=== PATIENT | male | born 1960 | race Caucasian/White ===

== ENCOUNTER 2020-09-07 15:51 | Emergency (ER) | payer MEDICARE, SELFPAY ==
[2020-09-07 15:53] VITALS: BP 147/101; PULSE 87; RESP 18; TEMP 36.7; O2SAT 98; BMI 25.7
[2020-09-07 16:00] VITALS: BP 156/99; PULSE 99; O2SAT 95
--- NOTE | 2020-09-07 16:02 | PC.NURSE ---
DR. JACQUES VERBALLY ORDRED A MEDINA FOR PATIENT
[2020-09-07 16:21] VITALS: BP 160/114; PULSE 92; O2SAT 95
--- NOTE | 2020-09-07 16:26 | HMH.EDGENADL ---
ED Disposition Clinical Impression: Acute urinary retention Disposition: Home, Self-Care Condition on Discharge: Good Additional Instructions: Please followup with urology and your PCP to get burks removed. Referrals: Nathalia Landeros [Primary Care Provider] - Stefan Paula MD [Staff Physician] - - Critical Care Critical Care Time: No Attestation: On 09/07/20, the high probability of a clinically significant, sudden or life threatening deterioration of the following system(s) required my full and direct attention, intervention and personal management. The time I documented below is in addition to time spent performing reported procedures but includes the following listed in this critical care notation. Medical Decision Making - Medical Records Medical records reviewed: Yes: I reviewed the patient's medical records. - Kurtis Inquiry Pt receiving controlled substance: No Vital Signs: 09/07/20 15:53 09/07/20 16:00 09/07/20 16:21 Temperature 98.1 F Temperature Source Oral Pulse Rate 99 H 92 H Pulse Rate [Right] 87 Respiratory Rate 18 Blood Pressure 156/99 H 160/114 H Blood Pressure [Right Arm] 147/101 H Blood Pressure Mean 122 129 Blood Pressure Mean [Right Arm] 116 02 Sat by Pulse Oximetry 98 95 95 09/07/20 16:30 09/07/20 17:00 Temperature Temperature Source Pulse Rate 95 H 94 H Pulse Rate [Right] Respiratory Rate Blood Pressure 150/102 H 156/96 H Blood Pressure [Right Arm] Blood Pressure Mean 123 117 Blood Pressure Mean [Right Arm] 02 Sat by Pulse Oximetry 95 95 - Lab Data Lab Results 09/07/20 16:11: Urine Color Yellow, Urine Appearance Clear, Urine pH 5.0, Ur Specific [place] 1.020, Urine Protein Negative, Urine Glucose (UA) Negative, Urine Ketones 1+, Urine Blood Negative, Urine Nitrate Negative, Urine Bilirubin Negative, Urine Urobilinogen 0.2, Ur Leukocyte Esterase Negative, Urine RBC None, Urine WBC None, Ur Squamous Epith Cells None, Urine Bacteria None 09/07/20 17:20: WBC 13.0 H, RBC 5.06, Hgb 15.2, Hct 46.4, MCV 91.6, MCH 30.0, MCHC 32.7, RDW 14.2, Plt Count 406, MPV 8.1, Neut % (Auto) 76.1, Lymph % (Auto) 17.6, [place] % (Auto) 4.2, Eos % (Auto) 1.4, Baso % (Auto) 0.7, Neut # (Auto) 9.9 H, Lymph # (Auto) 2.3, [place] # (Auto) 0.5, Eos # (Auto) 0.2, Baso # (Auto) 0.1 09/07/20 17:20: Sodium 138, Potassium 4.2, Chloride 107, Carbon Dioxide 21 L, Anion Gap 14.2, BUN 25 H, Creatinine 0.90, Estimated Creat Clear 97, Estimated GFR 86, Est GFR ( Amer) 104, Glucose 148 H, Calcium 9.5, Total Bilirubin 0.4, AST 35, ALT 27, Alkaline Phosphatase 84, Total Protein 7.7, Albumin 4.7, Globulin 3.0, Albumin/Globulin Ratio 1.6 Result diagrams: 09/07/20 17:20 09/07/20 17:20 Medical Decision Narrative: Upon presentation, patient is hemodynamically stable and nontoxic, but uncomfortable appearing. Patient presents with acute urinary retention. Differential diagnosis includes but is not limited to BPH, cauda equina, obstructive nephrolithiasis. A Burks was placed immediately upon arrival with 1200 mL of clear yellow output. Patient had immediate relief. Labs including CBC and CMP were obtained to evaluate patient's renal function. Patient has a normal creatinine. Patient has a mildly elevated white blood cell count and elevated BUN, likely in setting of acute urinary retention. Patient's urine do not demonstrate any signs of a UTI. Patient was discharged in stable condition and will follow up with urology and his PCP as he will be discharged with a Burks bag. General Adult HPI - General Chief complaint: PAIN Stated complaint: hasn't urinated in 12 hours Time Seen by Provider: 09/07/20 15:55 Mode of Arrival: Family Vehicle Limitations: No Limitations Description of Symptoms (Recalled from ER Triage Doc. by RN): PATIENT C/O LOWER ABDOMINAL PAIN SINCE YESTERDAY. PT REPORTS HE HAS NOT URINATED IN 15-17 HOURS. PATIENT REPORTS HE HAS A HX OF BPH. - History of Pres
[2020-09-07 16:30] VITALS: BP 150/102; PULSE 95; O2SAT 95
[2020-09-07 17:00] VITALS: BP 156/96; PULSE 94; O2SAT 95
[2020-09-07 17:03] LABS: Microscopic, Urine URINE MICROSCOPIC (MICROSCOPIC)
[2020-09-07 17:09] LABS: Appearance,Urine CLEAR (Clear); Bilirubin,Urine Negative (Negative); Blood, Urine Negative (Negative); Color,Urine YELLOW (Yellow); Glucose,Urine (UA) Negative (Negative); Ketones,Urine 1+ (Negative); Leukocyte Esterase,Urine Negative (Negative); Nitrate,Urine Negative (Negative); Protein,Urine Negative (Negative); Urobilinogen,Urine 0.2 EU/dl (0.2)
[2020-09-07 17:19] LABS: Basophils # 0.1 K/mm3 (0-0.2); Basophils % 0.7 % (0.1-2.0); Eosinophils # 0.2 K/mm3 (0.0-0.4); Eosinophils % 1.4 % (0.1-12.0); Hematocrit 46.4 % (42.0-52.0); Hemoglobin 15.2 g/dL (14.1-18.0); Lymphocytes # 2.3 K/mm3 (0.7-4.5); Lymphocytes % 17.6 % (10-50); Mean Corpuscular HGB Conc 32.7 g/dL (31.8-35.4); Mean Corpuscular Volume 91.6 fl (80-94); Mean Platelet Volume 8.1 fl (7.4-10.4); Monocytes # 0.5 K/mm3 (0.1-1.0); Monocytes % 4.2 % (1.7-9.3); Neutrophils # 9.9 K/mm3 (1.8-7.8); Neutrophils % 76.1 % (37.0-80.0); Platelet Count 406 K/mm3 (142-424); Red Blood Count 5.06 M/mm3 (4.60-6.20); Red Cell Distribution Width 14.2 % (11.5-17.5)
[2020-09-07 17:22] LABS: Chloride 107 mmol/L (98-107); Potassium 4.2 mmoL/L (3.5-5.1); Sodium 138 mmol/L (136-145)
[2020-09-07 17:24] LABS: Blood Urea Nitrogen 25 mg/dl (9-20); Creatinine Clearance Estimated 97 mL/min (50-200); Estimated Glomerular Filt Rate 86 ml/min (>60); GFR (African American) 104 ML/MIN (>60)
[2020-09-07 17:25] LABS: Alanine Aminotransferase 27 U/L (12-78); Albumin Level 4.7 g/dl (3.5-5.0); Albumin/Globulin Ratio 1.6 (1.1-1.8); Alkaline Phosphatase 84 U/L (38-126); Anion Gap 14.2 mEq/L (5-15); Aspartate Amino Transferase 35 U/L (17-59); Bilirubin,Total 0.4 mg/dl (0.2-1.3); Calcium 9.5 mg/dl (8.4-10.2); Carbon Dioxide 21 mmol/L (22.0-30.0); Glucose 148 mg/dl (74-100); Total Protein,Serum 7.7 g/dl (6.3-8.2)
[2020-09-07 17:52] VITALS: BP 148/90; PULSE 94; RESP 20; TEMP 36.7; O2SAT 98
== END 2020-09-07 17:50 | disposition home or self-care (01) ==
PROVIDERS: Emergency Provider Emergency Medicine; PCP Family Medicine
DX: N40.1 Benign prostatic hyperplasia with lower urinary tract symptoms (principal); R33.8 Other retention of urine; J44.9 Chronic obstructive pulmonary disease, unspecified; I10 Essential (primary) hypertension; F17.210 Nicotine dependence, cigarettes, uncomplicated; Z88.0 Allergy status to penicillin; Z88.8 Allergy status to other drugs, medicaments and biological substances
CPT/HCPCS: 80053; 81001; 85025; 99282

== ENCOUNTER 2022-05-03 04:44 | Inpatient (IN) | payer MEDICARE, SELFPAY ==
[2022-05-03] VITALS (30 sets, daily range): BP systolic 109–164; BP diastolic 67–112; PULSE 74–117; RESP 14–26; TEMP 36.1–43; O2SAT 90–98; BMI 27.6; BMI 27.9
--- NOTE | 2022-05-03 05:37 | CT_ITS ---
PROCEDURE INFORMATION: Exam: CT Abdomen And Pelvis With Contrast Exam date and time: 05/03/2022 7:07 AM Age: 61 years old Clinical indication: Abdominal pain; Localized; Left lower quadrant (llq); Prior surgery; Surgery date: 6+ months; Surgery type: Gb spleen; Additional info: Llq abd pain, nausea TECHNIQUE: Imaging protocol: Computed tomography of the abdomen and pelvis with contrast. Radiation optimization: All CT scans at this facility use at least one of these dose optimization techniques: automated exposure control; mA and/or kV adjustment per patient size (includes targeted exams where dose is matched to clinical indication); or iterative reconstruction. Contrast material: ISOVUE; Contrast volume: 75 ml; Contrast route: IV; COMPARISON: No relevant prior studies available. FINDINGS: Liver: 1.1 cm cyst within the inferior aspect of the right lobe of the liver. The liver is otherwise unremarkable. Gallbladder and bile ducts: There are postsurgical changes from a cholecystectomy. Pancreas: Normal. No ductal dilation. 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 Adrenal glands: Normal. No mass. Kidneys and ureters: Normal. No hydronephrosis. Stomach and bowel: Multiple dilated fluid-filled loops of small bowel that measure up to 3.8 cm in size. There is a ventral hernia repair. There is a loop of bowel that extends posterior to the left sided ventral hernia repair. There is a transition from dilated bowel to the relatively decompressed bowel at this location. No signs of inflammation. Diffuse diverticulosis. Appendix: No evidence of appendicitis. Intraperitoneal space: Unremarkable. No free air. No significant fluid collection. Vasculature: Unremarkable. No abdominal aortic aneurysm. Lymph nodes: Unremarkable. No enlarged lymph nodes. Urinary bladder: Unremarkable as visualized. Reproductive: Unremarkable as visualized. Bones/joints: Unremarkable. No acute fracture. Soft tissues: Postsurgical changes from a previous ventral hernia repair. There is no evidence of recurrence or failure. IMPRESSION: 1. Postsurgical changes from previous ventral hernia repair with failure of the left sided mesh. There is a loop of bowel between the mesh in the anterior abdominal wall with a significant change in caliber, workforce services representative of a partial versus high-grade bowel obstruction. There is no perforation. 2. Diverticulosis. 3. The remainder of the examination is unremarkable.
[2022-05-03 05:45] LABS: Appearance,Urine CLEAR (Clear); Bilirubin,Urine Negative (Negative); Blood, Urine Negative (Negative); Color,Urine YELLOW (Yellow); Glucose,Urine (UA) Negative (Negative); Ketones,Urine TRACE (Negative); Leukocyte Esterase,Urine Negative (Negative); Microscopic, Urine URINE MICROSCOPIC (MICROSCOPIC); Nitrate,Urine Negative (Negative); Protein,Urine Negative (Negative)
[2022-05-03 05:45] LABS: Basophils # 0.1 K/mm3 (0-0.2); Basophils % 0.6 % (0.1-2.0); Eosinophils # 0.1 K/mm3 (0.0-0.4); Eosinophils % 0.7 % (0.1-12.0); Hemoglobin 16.7 g/dL (14.1-18.0); Lymphocytes # 1.4 K/mm3 (0.7-4.5); Lymphocytes % 7.4 % (10-50); Mean Corpuscular HGB Conc 32.1 g/dL (31.8-35.4); Mean Corpuscular Hemoglobin 29.5 pg (27.0-31.2); Mean Corpuscular Volume 92.1 fl (80-94); Mean Platelet Volume 8.5 fl (7.4-10.4); Monocytes # 0.5 K/mm3 (0.1-1.0); Monocytes % 2.7 % (1.7-9.3); Neutrophils % 88.6 % (37.0-80.0); Platelet Count 434 K/mm3 (142-424); Red Blood Count 5.65 M/mm3 (4.60-6.20); Red Cell Distribution Width 14.8 % (11.5-17.5); White Blood Count 19.2 K/mm3 (4.8-10.8)
[2022-05-03 05:48] LABS: Chloride 99 mmol/L (98-107); Sodium 140 mmol/L (136-145)
[2022-05-03 05:49] LABS: MANUAL DIFFERENTIAL MANUAL DIFFERENTIAL (MANUAL DIFF)
[2022-05-03 05:51] LABS: Alanine Aminotransferase 22 U/L (12-78); Albumin Level 4.7 g/dl (3.5-5.0); Albumin/Globulin Ratio 1.3 (1.1-1.8); Alkaline Phosphatase 87 U/L (38-126); Aspartate Amino Transferase 33 U/L (17-59); Bilirubin,Total 0.5 mg/dl (0.2-1.3); Blood Urea Nitrogen 15 mg/dl (9-20); Carbon Dioxide 32 mmol/L (22.0-30.0); Creatinine Clearance Estimated 92 mL/min (50-200); Estimated Glomerular Filt Rate 86 ml/min (>60); GFR (African American) 103 ML/MIN (>60); Globulin 3.6 g/dL (1.3-3.2); Total Protein,Serum 8.3 g/dl (6.3-8.2)
[2022-05-03 05:52] LABS: Calcium 10.4 mg/dl (8.4-10.2); Glucose 153 mg/dl (74-100)
[2022-05-03 06:16] LABS: Lymphocytes % 8 % (10-50); Neutrophils % 84 % (42-76); Platelet Estimate Normal; RBC Morphology Normal; Total Cells Counted 100
--- NOTE | 2022-05-03 06:37 | PC.NURSE ---
Dr. Benoit s/w EMMYAD
--- NOTE | 2022-05-03 06:46 | HMH.EDABDPAI ---
Discharge Plan Disposition Patient Disposition: Admitted As Inpatient Chief Complaint: Abdominal Pain Prescriptions Prescriptions: No Action azithromycin [Zithromax] 500 mg tablet See Rx Instructions PO .COMPLEX Qty: 3 0RF Dose Instruction: take 500 mg today (day 1), then 250 mg for 4 days (days 2-5) PO Rx Instructions: take 500 mg today (day 1), then 250 mg for 4 days (days 2-5) PO finasteride 5 mg tablet 5 mg PO DAILY fluticasone propionate 50 mcg/actuation spray,suspension 2 spray INTRANASAL DAILY Rx Instructions: administer into each nostril dicyclomine 10 mg capsule 10 mg PO TID nabumetone 750 mg tablet 750 mg PO BID atorvastatin 40 mg tablet 40 mg PO DAILY lisinopril 20 mg tablet 20 mg PO DAILY omeprazole 40 mg capsule,delayed release(DR/EC) 40 mg PO DAILY amoxicillin 500 mg capsule 500 mg PO BID cyclobenzaprine 10 mg tablet 10 mg PO HS All Day Allergy (cetirizine) 10 mg capsule 10 mg PO DAILY PRN metformin 500 mg tablet 500 mg PO DAILY Referrals Follow up/Referrals: Nathalia Landeros [Primary Care Provider] - See instructions Clinical Impressions Clinical Impression: Small bowel obstruction Instructions Patient Instructions: DI for Acute Abdominal Pain Discharge ED Provider: Venkat Benoit Abdominal Pain HPI General Chief Complaint: Abdominal Pain Stated Complaint: Vomiting, weakness, stomach cramps Time Seen by Provider: 05/03/22 06:47 Mode of Arrival: Ambulatory Source of Information: Patient and Medical Record Limitations: No Limitations Description of Symptoms (Recalled from ER Triage Doc. by RN): pt states that he started having pain in the LLQ at about 930 pm and then the vomiting started at 1030. the pt had a BM at noon pt stated it was normal the pt is concerned that he may have a bowel obstruction. History of Present Illness HPI narrative: progressive abd pain since last pm with vomiting MD complaint: abdominal pain Onset (ago): hour(s) Consistency: constant Location: periumbilical and LLQ Severity: moderate Associated symptoms: denies other symptoms Related Data Home Medications Medication Instructions Recorded Confirmed amoxicillin 500 mg capsule 500 mg PO BID 09/08/20 09/08/20 atorvastatin 40 mg tablet 40 mg PO DAILY 09/08/20 09/08/20 cetirizine 10 mg capsule (All Day 10 mg PO DAILY PRN 09/08/20 09/08/20 Allergy (cetirizine)) cyclobenzaprine 10 mg tablet 10 mg PO HS 09/08/20 09/08/20 dicyclomine 10 mg capsule 10 mg PO TID 09/08/20 09/08/20 finasteride 5 mg tablet 5 mg PO DAILY 09/08/20 09/08/20 fluticasone propionate 50 2 spray intranasal DAILY 09/08/20 09/08/20 mcg/actuation nasal spray,suspension lisinopril 20 mg tablet 20 mg PO DAILY 09/08/20 09/08/20 metformin 500 mg tablet 500 mg PO DAILY 09/08/20 09/08/20 nabumetone 750 mg tablet 750 mg PO BID 09/08/20 09/08/20 omeprazole 40 mg capsule,delayed 40 mg PO DAILY 09/08/20 09/08/20 release Previous Rx's Medication Instructions Recorded azithromycin 500 mg tablet See Rx Instructions PO .COMPLEX 01/29/19 (Zithromax) otitis media #3 tabs Allergies Allergy/AdvReac Type Severity Reaction Status Date / Time amitriptyline Allergy Agitated Verified 09/08/20 13:58 Sulfa (Sulfonamide Allergy Verified 09/08/20 13:58 Antibiotics) tramadol Allergy Verified 09/08/20 13:58 [facility] Medical History (Updated 05/03/22 @ 07:34 by Venkat Benoit MD) Ear ache Social History Smoking Status: Current every day smoker tobacco type: cigarettes packs per day: 2 alcohol intake: current substance use type: denies use current occupational status: disabled Travel in the last 8 weeks: None household members: significant other housing: house ROS Obtained: Yes All systems reviewed & no additional complaints except as documented Physical Exam General General appearance: alert Head H
[2022-05-03 07:04] LABS: Bacteria,Urine Trace /lpf; Squamous Epithelial Cell,Urine Occasional #/hpf (0-5)
--- NOTE | 2022-05-03 07:10 | PC.NURSE ---
DR grullon at the bedside
--- NOTE | 2022-05-03 07:14 | PC.NURSE ---
Dr. Garcia at bedside
--- NOTE | 2022-05-03 07:22 | ECG_ITS ---
APPROVED REPORT Exam: Resting ECG HR:78 bpm ECG Measurements Heart Rate 78 AXES MO 146 P 48 QRSd 99 QRS 39 QT 380 T 32 QTc 413 Conclusion SINUS RHYTHM WITH OCCASIONAL VENTRICULAR PREMATURE COMPLEXES NONSPECIFIC ST & T-WAVE ABNORMALITY BORDERLINE ECG UNCONFIRMED REPORT Electronically signed by : Fabian Max MD 05/03/2022 21:10:59
[2022-05-03 07:25] LABS: Coronavirus 19, PCR Not Detected (NotDetected); Influenza A, PCR Not Detected (NotDetected); Influenza B, PCR Not Detected (NotDetected)
--- NOTE | 2022-05-03 07:38 | PC.NURSE ---
PT IN WITH THE SURGERY TEAM
--- NOTE | 2022-05-03 07:47 | EXP.HP ---
History of Present Illness *Admission Date: 05/03/22 *Reason for visit:: Small bowel obstruction *History of present illness: Patient is a 61-year-old male with past medical history of hypertension, hyperlipidemia, and prediabetes who came to the ER early this morning for left lower quadrant abdominal pain. 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 He reports that his abdomen has been hurting on and off for a few weeks, but he began having very sharp, severe pain around midnight. Pain at that time was 10 out of 10. His last bowel movement was noon yesterday. Patient denies any fever, chills, blood in his stool. [facility] Medical History (Updated 05/03/22 @ 07:56 by Vasile Abbasi MD) Ear ache Social History Smoking Status: Current every day smoker tobacco type: cigarettes packs per day: 2 alcohol intake: current substance use type: denies use current occupational status: disabled Travel in the last 8 weeks: None household members: significant other housing: house Review of Systems Constitutional Constitutional: Denies body ache(s), Denies chills, Denies fatigue, Denies fever(s), Denies increased appetite, Denies poor appetite and Denies lethargy Eyes Eyes: Denies change in vision ENT Ears, Nose, Mouth, and Throat: Denies dizziness, Denies dysphagia and Denies mouth pain *Cardiovascular Cardiovascular: Denies chest pain, Denies chest pain with activity, Denies dyspnea, Denies dyspnea on exertion, Denies edema, Denies irregular heart rhythm and Denies leg edema *Respiratory Respiratory: Denies chest congestion, Denies cough, Denies dyspnea and Denies dyspnea on exertion *Gastrointestinal Gastrointestinal: Reports abdominal pain, Denies change in bowel habits, Denies change in stool character, Denies constipation, Denies dysphagia, Denies hematochezia, Reports nausea and Denies vomiting *Genitourinary Genitourinary: Denies difficulty urinating *Musculoskeletal Musculoskeletal: Denies abnormal gait, Denies arthralgias, Denies atrophy and Denies limited range of motion *Neurologic Neurologic: Denies abnormal gait, Denies abnormal speech, Denies confusion, Denies convulsions, Denies dizziness and Denies localized weakness Psychiatric Psychiatric: Denies anxiety, Denies confusion and Denies depression Endocrine Endocrine: Denies fatigue Meds Home Medications and Allergies Home Medications Medication Instructions Recorded Confirmed Type finasteride 5 mg tablet 5 mg PO DAILY PROSTATE 09/08/20 05/03/22 History fluticasone propionate 50 2 spray intranasal DAILY Allergy 09/08/20 05/03/22 History mcg/actuation nasal symptoms spray,suspension lisinopril 20 mg tablet 20 mg PO DAILY Hypertension 09/08/20 05/03/22 History metformin 500 mg tablet 500 mg PO BID Diabetes 09/08/20 05/03/22 History nabumetone 750 mg tablet 750 mg PO DAILY Pain 09/08/20 05/03/22 History omeprazole 40 mg capsule,delayed 40 mg PO DAILY GERD 09/08/20 05/03/22 History release baclofen 10 mg tablet 10 - 20 mg PO TID MUSCLE SPASM 05/03/22 05/03/22 History rosuvastatin 20 mg tablet 20 mg PO HS Cholesterol 05/03/22 05/03/22 History New Prescriptions to Start Prescriptions: Allergies Allergy/AdvReac Type Severity Reaction Status Date / Time amitriptyline Allergy Agitated Verified 09/08/20 13:58 Sulfa (Sulfonamide Allergy Verified 09/08/20 13:58 Antibiotics) tramadol Allergy Verified 09/08/20 13:58 Exam Data for Last 24 hours Vital signs and Labs for Last 24 Hours: Temp Pulse Resp BP Pulse Ox 98.4 F 87 18 164/112 H 95 05/03/22 07:34 05/03/22 07:34 05/03/22 07:34 05/03/22 07:34 05/03/22 04:45 Laboratory Results - last 24 hr 05/03/22 05:07: Urine Color Yellow, Urine Appearance Clear, Urine pH 8.0, Ur Specific [facility] 1.020, Urine Protein Negative, Urine Glucose (UA) Negative, Urine Ketones Trace, Urine Blood Negative, Urine Nitrate Negative, Urine
--- NOTE | 2022-05-03 08:00 | HMH.PHAINT1 ---
Pharmacy Intervention Comments: MEDICATION RECONCILIATION COMPLETED ON PATIENT USING EXTERNAL FILL HISTORY FROM PHARMACY. -ISAIAS DICKERSON, YESENIAD
--- NOTE | 2022-05-03 08:30 | SUR.PREOP ---
0745- pt brought straight from the ER to the OR
--- NOTE | 2022-05-03 08:49 | EXP.ANES.CKL ---
[facility] Medical History (Updated 05/03/22 @ 07:56 by Vasile Abbasi MD) Ear ache Social History Smoking Status: Current every day smoker tobacco type: cigarettes packs per day: 2 alcohol intake: current substance use type: denies use current occupational status: disabled Travel in the last 8 weeks: None household members: significant other housing: house [facility] Anesthesia Checklist Patient Identification Patient Identification: Arm Band and Verbal (Name & ) Structural Data Admitted From: Emergency Dept Planned Operative Procedure/s: Exploratory Laparotomy Consent for Planned Operative Procedure(s) Verified: Yes Verified Documents: Surgical Consent NPO Status Verified Time NPO: 00:00 Airway Assessment C-Spine Mobility Assessed: Yes TMJ Mobility Assessed: Yes Dentition: Poor Dentition Neurological Assessment Level of Consciousness: Awake, Alert and Appropriate Anesthesia Plan Anesthesia Risk discussed: Yes ASA Class: III Anesthesia Type: General
--- NOTE | 2022-05-03 13:12 | EXP.SURG.CON ---
History of Present Illness *Admission Date: 05/03/22 *Reason for visit:: Bowel obstruction *History of present illness: Patient is a 61-year-old male from [facility] who has a prior history of trauma laparotomy with splenectomy in approximately 2001. He had ventral hernia repair with mesh in approximately 2003 in [facility]. He has had a prior history of bowel obstruction. 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 He has had some pain off and on intermittently for several weeks but became quite severe and unrelenting overnight. He describes the pain as a 10 out of 10. Evaluation in the emergency department included CT scan which revealed postsurgical changes from previous ventral hernia repair with failure of the left-sided mesh. There is loop of bowel between the mesh and the anterior abdominal wall with significant change in caliber, representing partial versus high-grade obstruction. Surgical consultation was obtained. [facility] Medical History (Updated 05/03/22 @ 07:56 by Vasile Abbasi MD) Ear ache Social History Smoking Status: Current every day smoker tobacco type: cigarettes packs per day: 2 alcohol intake: current substance use type: denies use current occupational status: disabled Travel in the last 8 weeks: None household members: significant other housing: house Review of Systems ENT Ears, Nose, Mouth, and Throat: Denies dizziness *Musculoskeletal Musculoskeletal: Denies abnormal gait *Neurologic Neurologic: Denies abnormal gait, Denies abnormal speech, Denies confusion, Denies convulsions, Denies dizziness and Denies localized weakness Psychiatric Psychiatric: Denies confusion Meds Home Medications and Allergies Home Medications Medication Instructions Recorded Confirmed Type finasteride 5 mg tablet 5 mg PO DAILY PROSTATE 09/08/20 05/03/22 History fluticasone propionate 50 2 spray intranasal DAILY Allergy 09/08/20 05/03/22 History mcg/actuation nasal symptoms spray,suspension lisinopril 20 mg tablet 20 mg PO DAILY Hypertension 09/08/20 05/03/22 History metformin 500 mg tablet 500 mg PO BID Diabetes 09/08/20 05/03/22 History nabumetone 750 mg tablet 750 mg PO DAILY Pain 09/08/20 05/03/22 History omeprazole 40 mg capsule,delayed 40 mg PO DAILY GERD 09/08/20 05/03/22 History release baclofen 10 mg tablet 10 - 20 mg PO TID MUSCLE SPASM 05/03/22 05/03/22 History rosuvastatin 20 mg tablet 20 mg PO HS Cholesterol 05/03/22 05/03/22 History New Prescriptions to Start Prescriptions: Allergies Allergy/AdvReac Type Severity Reaction Status Date / Time amitriptyline Allergy Agitated Verified 09/08/20 13:58 Sulfa (Sulfonamide Allergy Verified 09/08/20 13:58 Antibiotics) tramadol Allergy Verified 09/08/20 13:58 Exam (Inpt) Vital signs and Labs for Last 24 Hours: Temp Pulse Resp BP Pulse Ox 98.4 F 87 18 164/112 H 95 05/03/22 07:34 05/03/22 07:34 05/03/22 07:34 05/03/22 07:34 05/03/22 04:45 Laboratory Results - last 24 hr 05/03/22 05:07: Urine Color Yellow, Urine Appearance Clear, Urine pH 8.0, Ur Specific [place] 1.020, Urine Protein Negative, Urine Glucose (UA) Negative, Urine Ketones Trace, Urine Blood Negative, Urine Nitrate Negative, Urine Bilirubin Negative, Urine Urobilinogen 1.0, Ur Leukocyte Esterase Negative, Urine RBC None, Urine WBC None, Ur Squamous Epith Cells Occasional, Urine Bacteria Trace 05/03/22 05:35: WBC 19.2 H, RBC 5.65, Hgb 16.7, Hct 52.0, MCV 92.1, MCH 29.5, MCHC 32.1, RDW 14.8, Plt Count 434 H, MPV 8.5, Neut % (Auto) 88.6 H, Lymph % (Auto) 7.4 L, [place] % (Auto) 2.7, Eos % (Auto) 0.7, Baso % (Auto) 0.6, Neut # (Auto) 17.0 H, Lymph # (Auto) 1.4, [place] # (Auto) 0.5, Eos # (Auto) 0.1, Baso # (Auto) 0.1, Total Counted 100, Neutrophils % (Manual) 84 H, Band Neutrophils % 8.0, Lymphocytes % (Manual) 8 L, Platelet Estimate Normal, RBC Morphology Normal
--- NOTE | 2022-05-03 13:18 | EXP.OP.NOTE ---
Date of procedure: 05/03/22 Pre-op Diagnosis:: Bowel obstruction Post-op Diagnosis:: Same Procedure performed:: Exploratory laparotomy with extensive lysis of adhesions and small bowel resection for bowel obstruction. Surgeon:: Darvin Garcia MD AGRICULTURAL SERVICES DIRECTOR:: Bradly Moon Anesthesia: KYLE Estimated blood loss (mL): 100 Clinical Note:: Patient is a 61-year-old male from [facility] who has a prior history of trauma laparotomy with splenectomy in approximately 2001.? He had ventral hernia repair with mesh in approximately 2003 in [facility].? He has had a prior history of bowel obstruction.? 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 He has had some pain off and on intermittently for several weeks but became quite severe and unrelenting overnight.? He describes the pain as a 10 out of 10.? Evaluation in the emergency department included CT scan which revealed postsurgical changes from previous ventral hernia repair with failure of the left-sided mesh.? There is loop of bowel between the mesh and the anterior abdominal wall with significant change in caliber, representing partial versus high-grade obstruction. ? Surgical consultation was obtained. Patient was seen and examined in the emergency department. Given the findings on CT scan and his clinical examination arrangements were made for emergent laparotomy. Operative findings:: Patient had a massive prosthetic mesh covering essentially his entire abdominal wall except the lower abdomen and pelvis. He did have a moderate incisional hernia above this in the subxiphoid location but this was inconsequential. He virtually had a frozen abdomen with massive amount of intra-abdominal adhesions with numerous tight densely adherent loops of bowel. There was evidence of a complete obstruction secondary to adhesions in the mid small bowel with complete decompression distally. Immediately adjacent to this area of the dense adhesions bowel was herniated anterior to the mesh which was disrupted from the anterior abdominal wall. There were unavoidable enterotomies created upon freeing the densely adherent bowel anterior to the mesh. Operative duration approximately 6 hours. Operative note:: Consent was obtained and patient was taken emergently to the operating room. He was positioned in supine position. General anesthesia was induced via endotracheal tube. He was given preoperative intravenous antibiotics. Abdomen was prepped and draped in the standard surgical fashion. Patient had a large midline incision from prior surgery from his xiphoid to inferior to his umbilicus. Lower abdominal laparotomy was performed. Dissection was carried down through subcutaneous tissues. Fascia was incised. Due to prior surgery initial identification of midline was somewhat difficult. Ultimately the peritoneal cavity was entered inferior to the mesh and exposure was achieved. Eventually incision had to be extended from near the pubis and well onto the abdominal mesh as the mesh covered most of his abdominal wall. The mesh was divided sharply once underlying adhesions were taken down. There were large dilated loops of bowel and extensive adhesions mostly of small bowel adherent upon itself in matted tight loops. Extremely prolonged extensive dissection was carried out. There were loops of small bowel adherent anterior to the disrupted mesh in the left anterior abdominal wall. There was no overlying hernia interestingly at this location. Prolonged dissection was carried out freeing this up using blunt dissection and Metzenbaum dissection. Due to its incredibly densely adherent nature there were some unavoidable enterotomies as the small bowel was distended and friable secondary to obstruction initially as well. After an extended period of time much of the adhesions were taken down. The site of obstruction was due to a large amount of interloop adhesions
--- NOTE | 2022-05-03 13:28 | P.PNANES_ITS ---
[facility] Anesthesia Record Part I Anesthesia Record I Intake, IV Amount: 2,500 Estimated blood loss (mL): 200 Urine output (mL): 300 Blood Pressure: 163/91 SaO2: 93 Pulse Rate: 101 Respiratory Rate: 24 Temperature: 97.2 F Patient is:: Drowsy
[2022-05-03 14:02] LABS: POC Glucose,Bedside 152 (70-110)
--- NOTE | 2022-05-03 14:05 | SUR.PHASEI ---
Lopressor 3mg IV given per order for increased HR.
--- NOTE | 2022-05-03 14:10 | SUR.PHASEI ---
Dilaudid 0.5mg IV given for pain 12/27.
--- NOTE | 2022-05-03 14:15 | SUR.PHASEI ---
FSBS 152
--- NOTE | 2022-05-03 14:19 | SUR.PHASEI ---
Dilaudid 0.5mg IV given for C/O pain 12/27. VSS
--- NOTE | 2022-05-03 14:35 | PC.NURSE ---
arrived to floor from surgery by red
--- NOTE | 2022-05-03 15:03 | EXP.ANES.I ---
[facility] Anesthesia Record Part I Anesthesia Record I Intake, IV Amount: 800 Estimated blood loss (mL): 1 Urine output (mL): 0 Blood Pressure: 112/68 SaO2: 95 Pulse Rate: 74 Respiratory Rate: 16 Temperature: 97.0 F Patient is:: Drowsy Stable to PACU at:: 15:10
--- NOTE | 2022-05-03 15:32 | PC.NURSE ---
Admission done to the best of my ability, no family members with patient and patient is fairly drowsy.
--- NOTE | 2022-05-03 16:06 | PC.NURSE ---
Pt arrived to the floor via bed accompanied by Rimma Dnoaldson, RN and Nica Motley RN. He is drowsy but awakens to voice. Rhonchi noted t/o lungs. He is currently on 2L NC with O2 sats measuring > 93%. Midline dressing is clean, dry and intact. NG is to left nare draining dark brown fluid. Carranza is to bedside draining clear, straw colored urine. He's been sinus tach on telemetry. Hr 90's-110's. VIOLIN RESTORER is at bedside, none has been used at this time. Bed is locked and in the lowest position, call light is within reach.
[2022-05-03 16:54] LABS: POC Glucose,Bedside 135 (70-110)
[2022-05-03 18:06] LABS: Microscopic,Cath URINE MICROSCOPIC (MICROSCOPIC)
[2022-05-03 18:25] LABS: Appearance,Urine/Cath CLEAR (Clear); Bilirubin,Cath Negative (Negative); Blood, Urine/Cath TRACE-I (Negative); Color,Urine/Cath YELLOW (Yellow); Glucose,Urine/Cath (UA) Negative (Negative); Ketones,Urine/Cath Negative (Negative); Leukocyte Esterase,Cath Negative (Negative); Nitrate,Cath Negative (Negative); PH,Urine/Cath 7.5 (5.0-8.5); Protein,Urine/Cath Negative (Negative); Specific Gravity, Urine/Cath 1.015 (1.005-1.030); Urobilinogen,Cath 0.2 EU/dl (0.2)
[2022-05-03 18:29] LABS: WBC,Urine/Cath Occasional #/hpf (0-3)
--- NOTE | 2022-05-03 20:34 | PC.NURSE ---
clamped ngt for med administration
[2022-05-03 20:50] LABS: POC Glucose,Bedside 136 (70-110)
[2022-05-04] VITALS (16 sets, daily range): BP systolic 104–144; BP diastolic 68–97; PULSE 90–118; RESP 16–28; TEMP 36.4–37.3; O2SAT 88–93; BMI 27.3
[2022-05-04 05:54] LABS: POC Glucose,Bedside 115 (70-110)
--- NOTE | 2022-05-04 06:19 | EXP.SURG.PN ---
Subjective Narrative: Patient complains of some pain. 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 Asks for some water. Exam Data for Last 24 hours Vital signs and Labs for Last 24 Hours: Temp Pulse Resp BP Pulse Ox 99.1 F 110 H 28 H 128/91 H 90 L 05/04/22 05:20 05/04/22 06:00 05/04/22 06:00 05/04/22 06:00 05/04/22 06:00 Laboratory Results - last 24 hr 05/03/22 05:07: Urine RBC None, Urine WBC None, Ur Squamous Epith Cells Occasional, Urine Bacteria Trace 05/03/22 07:15: SARS-CoV-2 (PCR) Not detected, Influenza A Untype (PCR) Not detected, Influenza Type B (PCR) Not detected 05/03/22 07:50: Urine Color Yellow, Urine Appearance Clear, Urine pH 7.5, Ur Specific [place] 1.015, Urine Protein Negative, Urine Glucose (UA) Negative, Urine Ketones Negative, Urine Blood Trace-i, Urine Nitrate Negative, Urine Bilirubin Negative, Urine Urobilinogen 0.2, Ur Leukocyte Esterase Negative, Urine RBC 3-5, Urine WBC Occasional, Ur Squamous Epith Cells None, Urine Bacteria None 05/03/22 13:55: POC Glucose 152 H 05/03/22 16:41: POC Glucose 135 H 05/03/22 20:44: POC Glucose 136 H 05/04/22 05:48: POC Glucose 115 H I & O for Last 24 hours: Intake & Output 05/01/22 05/02/22 05/03/22 05/04/22 11:59 11:59 11:59 11:59 Intake Total 3521 / 3521 Output Total 1825 / 1825 Balance 1696 / 1696 Weight 187 lb 184 lb 7.994 oz *Routine Abdominal Exam Abdominal: Present soft Comments: Dressing dry Progress Note: A&P Assessment and plan (1) Bowel obstruction: Status: Acute Assessment and plan: Continue current management. Nasogastric tube has put out about 725 cc. Likely keep Carranza catheter for 1 more day. Check labs. May add Toradol for pain control.
--- NOTE | 2022-05-04 06:21 | XR_ITS ---
FINAL REPORT CLINICAL HISTORY: CHECK TUBE PLACEMENT..surgery for small bowel resection FINDINGS: Chest: A single view of the chest demonstrates patchy bibasilar airspace infiltrate. There is a small right pleural effusion. Abdomen: Flat and upright views of the abdomen demonstrate the NG tube terminating in the left upper quadrant probably in the stomach. There are multiple overlying loops of bowel. There is no free air. There is a midline row of skin rosendo. IMPRESSION: NG tube terminates in the left upper quadrant probably in the stomach. Bibasilar airspace infiltrates with a small right pleural effusion. Reviewed, Interpreted and Dictated by Eros Roman MD Transcribed by Norman Doan Authenticated and [facility]
[2022-05-04 06:32] LABS: Basophils # 0.2 K/mm3 (0-0.2); Basophils % 0.9 % (0.1-2.0); Eosinophils # 0.1 K/mm3 (0.0-0.4); Eosinophils % 0.4 % (0.1-12.0); Hematocrit 43.6 % (42.0-52.0); Hemoglobin 13.7 g/dL (14.1-18.0); Lymphocytes # 1.1 K/mm3 (0.7-4.5); Lymphocytes % 5.2 % (10-50); Mean Corpuscular HGB Conc 31.4 g/dL (31.8-35.4); Mean Corpuscular Hemoglobin 29.1 pg (27.0-31.2); Mean Corpuscular Volume 92.5 fl (80-94); Mean Platelet Volume 9.4 fl (7.4-10.4); Monocytes # 0.7 K/mm3 (0.1-1.0); Monocytes % 3.3 % (1.7-9.3); Neutrophils # 19.1 K/mm3 (1.8-7.8); Neutrophils % 90.2 % (37.0-80.0); Platelet Count 394 K/mm3 (142-424); Red Blood Count 4.72 M/mm3 (4.60-6.20); Red Cell Distribution Width 15.1 % (11.5-17.5); White Blood Count 21.1 K/mm3 (4.8-10.8)
[2022-05-04 06:41] LABS: MANUAL DIFFERENTIAL MANUAL DIFFERENTIAL (MANUAL DIFF)
[2022-05-04 06:42] LABS: Lactic Acid 2.6 mmol/L (0.7-2.1)
[2022-05-04 06:51] LABS: Alanine Aminotransferase 26 U/L (12-78); Albumin/Globulin Ratio 1.3 (1.1-1.8); Alkaline Phosphatase 55 U/L (38-126); Anion Gap 14.9 mEq/L (5-15); Aspartate Amino Transferase 44 U/L (17-59); Bilirubin,Total 0.4 mg/dl (0.2-1.3); Blood Urea Nitrogen 21 mg/dl (9-20); Calcium 8.4 mg/dl (8.4-10.2); Carbon Dioxide 22 mmol/L (22.0-30.0); Chloride 107 mmol/L (98-107); Creatinine Clearance Estimated 82 mL/min (50-200); Estimated Glomerular Filt Rate 68 ml/min (>60); GFR (African American) 82 ML/MIN (>60); Globulin 2.4 g/dL (1.3-3.2); Glucose 113 mg/dl (74-100); Magnesium 1.4 mg/dl (1.6-2.3); Potassium 4.9 mmoL/L (3.5-5.1); Sodium 139 mmol/L (136-145); Total Protein,Serum 5.4 g/dl (6.3-8.2)
[2022-05-04 07:20] LABS: Lymphocytes % 6 % (10-50); Monocytes % 5 % (2-9); Neutrophils % 82 % (42-76); Total Cells Counted 100
[2022-05-04 07:21] LABS: Platelet Estimate Slight Increase; RBC Morphology Normal
--- NOTE | 2022-05-04 08:03 | P.PNANES_ITS ---
[facility] Anesthesia Record Part II Anesthesia Record Part II Discharge Time: 13:56 Destination: Second Floor PACU nurse assessment reviewed?: Yes Patient Condition:: Good Anesthesia Complications:: None Swallowing reflex intact?: Yes Cyanosis?: No Blood Pressure: 143/97 Pulse Rate: 96 Temperature: 98.1 F Mental Status: Alert & Oriented Pain level:: 0 Nausea and/or vomitting:: None Intake, IV Amount: 2,000
[2022-05-04 10:18] LABS: Reflex Lactic Add Lactic Reflex
[2022-05-04 11:22] LABS: POC Glucose,Bedside 103 (70-110)
--- NOTE | 2022-05-04 12:03 | EXP.ACUTE.PN ---
Subjective *Date: 05/04/22 *Time: 12:03 Interval history: Patient continues to complain of abdominal pain, nausea but no emesis. NG still in place. Complaining of dry mouth and sore throat necessitating drinking water and eating ice chips. Remains afebrile. Denies any flatus or bowel movement since surgery. afebrile and hemodynamically stable overnight. Medical Exam Vital signs and Labs for Last 24 Hours: Vital Signs Temp Pulse Pulse Pulse Resp BP BP 05/04/22 11:56 97.7 F 05/04/22 10:00 102 H 20 104/75 L 05/04/22 08:00 05/04/22 08:00 97.6 F 05/04/22 08:00 112 H 22 136/96 H 05/04/22 07:58 109 H 05/04/22 06:00 110 H 28 H 128/91 H 05/04/22 04:00 110 H 26 H 112/72 05/04/22 05:20 99.1 F 05/04/22 04:00 109 H 05/04/22 02:00 111 H 27 H 105/69 L 05/04/22 00:00 115 H 05/04/22 00:26 97.8 F 05/04/22 00:54 05/04/22 00:00 118 H 27 H 134/93 H 05/04/22 00:00 05/03/22 20:00 05/03/22 22:00 117 H 26 H 140/100 H 05/03/22 21:25 114 H 23 127/91 H 05/03/22 20:00 112 H 05/03/22 20:30 97.6 F 05/03/22 20:25 111 H 26 H 135/83 05/03/22 19:25 112 H 26 H 120/84 05/03/22 19:12 05/03/22 18:25 108 H 18 109/70 L 05/03/22 16:00 98.3 F 05/03/22 17:25 98.1 F 102 H 18 130/95 H 05/03/22 16:55 98.1 F 104 H 16 119/90 05/03/22 14:40 100 H 05/03/22 16:00 100 H 05/03/22 16:25 97.6 F 100 H 14 132/89 05/03/22 15:55 98.2 F 99 H 18 131/90 05/03/22 15:25 97.7 F 101 H 16 140/95 H 05/03/22 15:10 97.4 F L 100 H 14 146/94 H 05/03/22 14:55 97.5 F L 97 H 16 134/95 H 05/03/22 14:40 98.1 F 96 H 14 143/97 H 05/03/22 14:31 97.3 F L 93 H 20 144/94 H 05/03/22 14:26 91 H 20 148/90 H 05/03/22 14:16 91 H 20 153/93 H 05/03/22 14:06 97.2 F L 111 H 18 156/97 H 05/03/22 13:56 114 H 20 129/70 05/03/22 13:46 97.3 F L 111 H 20 134/67 05/03/22 13:36 104 H 20 127/67 05/03/22 13:26 97.1 F L 102 H 20 163/91 H 05/03/22 15:04 97.0 F L 74 16 112/68 05/04/22 08:05 98.1 F 96 H 143/97 H 05/03/22 13:29 97.2 F L 101 H 24 163/91 H Pulse Ox 05/04/22 11:56 05/04/22 10:00 90 L 05/04/22 08:00 90 L 05/04/22 08:00 05/04/22 08:00 90 L 05/04/22 07:58 90 L 05/04/22 06:00 90 L 05/04/22 04:00 90 L 05/04/22 05:20 05/04/22 04:00 05/04/22 02:00 91 L 05/04/22 00:00 05/04/22 00:26 05/04/22 00:54 90 L 05/04/22 00:00 90 L 05/04/22 00:00 90 L 05/03/22 20:00 90 L 05/03/22 22:00 90 L 05/03/22 21:25 90 L 05/03/22 20:00 05/03/22 20:30 05/03/22 20:25 93 L 05/03/22 19:25 94 L 05/03/22 19:12 95 05/03/22 18:25 94 L 05/03/22 16:00 05/03/22 17:25 93 L 05/03/22 16:55 93 L 05/03/22 14:40 05/03/22 16:00 05/03/22 16:25 97 05/03/22 15:55 97 05/03/22 15:25 96 05/03/22 15:10 96 05/03/22 14:55 98 05/03/22 14:40 97 05/03/22 14:31 95 05/03/22 14:26 95 05/03/22 14:16 97 05/03/22 14:06 96 05/03/22 13:56 95 05/03/22 13:46 92 L 05/03/22 13:36 93 L 05/03/22 13:26 93 L 05/03/22 15:04 05/04/22 08:05 05/03/22 13:29 Intake and Output 05/03/22 05/04/22 05/04/22 23:59 07:59 15:59 Intake Total 221 / 3521 1999 Output Total 500 / 525 1300 / 1300 0 / 1300 Balance -279 / 2996 -1300 / 700 1999 / Intake: Intake, Total IV Amount 221 / 3521 1999 0.9 % Sodium Chloride 1,000 ml 221 / 221 @ 100 mls/hr IV .Q10H [facility] Rx#: [id number] Output: Output, Urine Amount 600 / 600 0 / 600 Output, Urine Amount (Catheter) 500 / 500 Carranza 500 / 500 Output, Gastric Drainage Amount 700 / 700 Nare 700 / 700 Other: Number of Unmeasured Voids 0 Weight 83.688 kg Patient Weight 05/04/22 23:59 Weigh
--- NOTE | 2022-05-04 12:31 | PC.NURSE ---
1210 OK to transfer pt out of stepdown per Dr Garcia. OK to transfer pt out of stepdown per Dr Salgado 1212
--- NOTE | 2022-05-04 12:45 | PC.NURSE ---
intake charted from multiple shifts
[2022-05-05 00:14] LABS: POC Glucose,Bedside 102 (70-110)
--- NOTE | 2022-05-05 02:15 | PC.NURSE ---
pt o2 sats decreased to 86% while sleeping. O2 increased to 3L NC. O2 sats maintain >90%
[2022-05-05 04:00] VITALS: BP 131/84; PULSE 93; RESP 20; TEMP 36.5; O2SAT 90
[2022-05-05 05:00] VITALS: BMI 27.7
--- NOTE | 2022-05-05 06:07 | PC.NURSE ---
15.9 mg of morphine cleared from DIRECTOR TRADE pump
[2022-05-05 06:11] LABS: POC Glucose,Bedside 83 (70-110)
[2022-05-05 06:30] LABS: Basophils # 0.1 K/mm3 (0-0.2); Basophils % 0.4 % (0.1-2.0); Eosinophils # 0.2 K/mm3 (0.0-0.4); Eosinophils % 0.9 % (0.1-12.0); Lymphocytes # 1.6 K/mm3 (0.7-4.5); Mean Corpuscular Hemoglobin 29.7 pg (27.0-31.2); Mean Corpuscular Volume 92.8 fl (80-94); Mean Platelet Volume 9.2 fl (7.4-10.4); Monocytes # 0.5 K/mm3 (0.1-1.0); Monocytes % 2.5 % (1.7-9.3); Neutrophils # 17.1 K/mm3 (1.8-7.8); Neutrophils % 88.1 % (37.0-80.0); Platelet Count 325 K/mm3 (142-424); Red Blood Count 3.88 M/mm3 (4.60-6.20); Red Cell Distribution Width 15.2 % (11.5-17.5); White Blood Count 19.4 K/mm3 (4.8-10.8)
[2022-05-05 06:45] LABS: Alanine Aminotransferase 20 U/L (12-78); Albumin/Globulin Ratio 1.2 (1.1-1.8); Alkaline Phosphatase 84 U/L (38-126); Anion Gap 12.9 mEq/L (5-15); Aspartate Amino Transferase 53 U/L (17-59); Bilirubin,Total 0.5 mg/dl (0.2-1.3); Blood Urea Nitrogen 29 mg/dl (9-20); Calcium 8.4 mg/dl (8.4-10.2); Carbon Dioxide 26 mmol/L (22.0-30.0); Chloride 106 mmol/L (98-107); Creatinine Clearance Estimated 77 mL/min (50-200); Estimated Glomerular Filt Rate 61 ml/min (>60); GFR (African American) 74 ML/MIN (>60); Globulin 2.6 g/dL (1.3-3.2); Glucose 80 mg/dl (74-100); Magnesium 2.4 mg/dl (1.6-2.3); Potassium 3.9 mmoL/L (3.5-5.1); Sodium 141 mmol/L (136-145); Total Protein,Serum 5.6 g/dl (6.3-8.2)
[2022-05-05 06:47] LABS: Hemoglobin 11.6 g/dL (14.1-18.0); MANUAL DIFFERENTIAL MANUAL DIFFERENTIAL (MANUAL DIFF)
[2022-05-05 07:27] LABS: Lymphocytes % 9 % (10-50); Monocytes % 3 % (2-9); Neutrophils % 88 % (42-76); Total Cells Counted 100
[2022-05-05 07:28] LABS: Platelet Estimate Normal; RBC Morphology Normal
--- NOTE | 2022-05-05 07:50 | EXP.SURG.PN ---
Subjective Patient reports: no new complaints Narrative: Feels just a little bit better than yesterday . Exam Data for Last 24 hours Vital signs and Labs for Last 24 Hours: Temp Pulse Resp BP Pulse Ox 97.7 F 93 H 20 131/84 90 L 05/05/22 04:00 05/05/22 04:00 05/05/22 04:00 05/05/22 04:00 05/05/22 04:00 Laboratory Results - last 24 hr 05/04/22 10:35: Lactate 2.0 05/04/22 11:15: POC Glucose 103 05/04/22 21:45: POC Glucose 102 05/05/22 06:00: WBC 19.4 H, RBC 3.88 L, Hgb 11.6 L D, Hct 36.0 L, MCV 92.8, MCH 29.7, MCHC 32.0, RDW 15.2, Plt Count 325, MPV 9.2, Neut % (Auto) 88.1 H, Lymph % (Auto) 8.0 L, [place] % (Auto) 2.5, Eos % (Auto) 0.9, Baso % (Auto) 0.4, Neut # (Auto) 17.1 H, Lymph # (Auto) 1.6, [place] # (Auto) 0.5, Eos # (Auto) 0.2, Baso # (Auto) 0.1, Total Counted 100, Neutrophils % (Manual) 88 H, Lymphocytes % (Manual) 9 L, Monocytes % (Manual) 3, Platelet Estimate Normal, RBC Morphology Normal 05/05/22 06:00: Sodium 141, Potassium 3.9 D, Chloride 106, Carbon Dioxide 26, Anion Gap 12.9, BUN 29 H D, Creatinine 1.20, Estimated Creat Clear 77, Estimated GFR 61, Est GFR ( Amer) 74, Glucose 80 D, Calcium 8.4, Magnesium 2.4 H D, Total Bilirubin 0.5, AST 53, ALT 20, Alkaline Phosphatase 84, Total Protein 5.6 L, Albumin 3.0 L, Globulin 2.6, Albumin/Globulin Ratio 1.2 05/05/22 06:02: POC Glucose 83 I & O for Last 24 hours: Intake & Output 05/02/22 05/03/22 05/04/22 05/05/22 11:59 11:59 11:59 11:59 Intake Total 5521 / 5521 4383 / 4383 Output Total 1825 / 1825 2825 / 2825 Balance 3696 / 3696 1558 / 1558 Weight 187 lb 184 lb 7.994 oz 187 lb 8 oz Constitutional Constitutional: no acute distress *Routine Respiratory Exam Respiratory: Present normal respiratory effort; Absent respiratory distress *Routine Cardiovascular Exam Cardiovascular: Absent tachycardia *Routine Abdominal Exam Abdominal: Present soft and tenderness Comments: Incision intact. No sign of infection. Small amount of clear fluid from mid/lower portion of incision noted. Progress Note: A&P Assessment and plan (1) Postoperative ileus: Status: Acute Assessment and plan: Continue nasogastric decompression for now Increase ambulation (2) Small bowel obstruction: Status: Acute Assessment and plan: Overall, stable status post exploration and partial small bowel resection Remove Carranza catheter
[2022-05-05 08:00] VITALS: BP 154/90; PULSE 92; RESP 16; TEMP 36.8; O2SAT 94
[2022-05-05 08:45] VITALS: BMI 27.7
[2022-05-05 11:49] LABS: POC Glucose,Bedside 84 (70-110)
--- NOTE | 2022-05-05 14:55 | EXP.ACUTE.PN ---
Subjective *Date: 05/05/22 *Time: 18:08 Interval history: States he feels somewhat better this morning. No nausea or emesis today. Tube has been clamped by surgery. No bowel movements or flatus. Pain stable and belly. Tolerating ice chips. Afebrile overnight. She denies shortness of breath or chest pain. Medical Exam Vital signs and Labs for Last 24 Hours: Vital Signs Temp Pulse Resp BP Pulse Ox 05/05/22 08:00 98.3 F 92 H 16 154/90 H 94 L 05/05/22 04:00 97.7 F 93 H 20 131/84 90 L 05/04/22 20:00 98.2 F 98 H 18 144/81 H 93 L 05/04/22 16:00 93 L 05/04/22 15:54 97.6 F 95 H 16 126/76 93 L Intake and Output 05/04/22 05/05/22 05/05/22 23:59 07:59 15:59 Intake Total 660 / 4791 1592 / 1592 Output Total 1725 / 3025 1100 / 1350 250 / 1350 Balance -1065 / 1766 492 / 242 -250 / 242 Intake: Intake, Other Amount 660 / 2791 700 / 700 Intake, Total IV Amount 892 / 892 0.9 % Sodium Chloride 1,000 ml 892 / 892 @ 100 mls/hr IV .Q10H [facility] Rx#: [id number] Output: Output, Urine Amount 450 / 1050 500 / 500 0 / 500 Output, Urine Amount (Catheter) 250 / 250 Burks 250 / 250 Output, Gastric Drainage Amount 1275 / 1975 600 / 600 Left Nare 1275 / 1275 600 / 600 Other: Number of Unmeasured Voids 0 0 Weight 85.049 kg 85 kg Patient Weight 05/05/22 23:59 Weight 85 kg Laboratory Results - last 24 hr 05/04/22 21:45: POC Glucose 102 05/05/22 06:00: WBC 19.4 H, RBC 3.88 L, Hgb 11.6 L D, Hct 36.0 L, MCV 92.8, MCH 29.7, MCHC 32.0, RDW 15.2, Plt Count 325, MPV 9.2, Neut % (Auto) 88.1 H, Lymph % (Auto) 8.0 L, [place] % (Auto) 2.5, Eos % (Auto) 0.9, Baso % (Auto) 0.4, Neut # (Auto) 17.1 H, Lymph # (Auto) 1.6, [place] # (Auto) 0.5, Eos # (Auto) 0.2, Baso # (Auto) 0.1, Total Counted 100, Neutrophils % (Manual) 88 H, Lymphocytes % (Manual) 9 L, Monocytes % (Manual) 3, Platelet Estimate Normal, RBC Morphology Normal 05/05/22 06:00: Sodium 141, Potassium 3.9 D, Chloride 106, Carbon Dioxide 26, Anion Gap 12.9, BUN 29 H D, Creatinine 1.20, Estimated Creat Clear 77, Estimated GFR 61, Est GFR ( Amer) 74, Glucose 80 D, Calcium 8.4, Magnesium 2.4 H D, Total Bilirubin 0.5, AST 53, ALT 20, Alkaline Phosphatase 84, Total Protein 5.6 L, Albumin 3.0 L, Globulin 2.6, Albumin/Globulin Ratio 1.2 05/05/22 06:02: POC Glucose 83 05/05/22 11:40: POC Glucose 84 I & O for Labs for Last 24 Hours: Intake & Output 05/02/22 05/03/22 05/04/22 05/05/22 23:59 23:59 23:59 23:59 Intake Total 3521 / 3521 4791 / 4791 1592 / 1592 Output Total 525 / 525 3025 / 3025 1350 / 1350 Balance 2996 / 2996 1766 / 1766 242 / 242 Weight 85.502 kg 83.688 kg 85 kg Constitutional: Present mild distress, average body habitus and chronically ill appearing Head: Present atraumatic and normocephalic ENT: Present normal exam and normal oropharynx Comment:: NG in place Neck: Present normal inspection Respiratory: Present normal respiratory effort; Absent rhonchi, wheezes or crackles Cardiac: Present Reg Rate and Rhythm GI: Present tenderness (diffuse.) and diminished bowel sounds Comments:: Postsurgical bandages clean dry and intact, (male): Present normal inspection Comment:: burks in place Extremities: Present normal inspection and full ROM; Absent edema Skin: Present intact; Absent erythema Neuro: Present Grossly Intact, alert, awake, oriented x 3 and moves all extremities Assessment and Plan *Assessment and plan (1) Bowel obstruction: Status: Deleted Category: Medical Code(s): K56.609 - Unspecified intestinal obstruction, unspecified as to partial versus complete obstruction (2) HTN (hypertension): Status: Acute Category: Medical Code(s): I10 - Essential (primary) hypertension (3) HLD (hyperlipidemia): Status: Acute Category: Medical Code(s): E78.5 - Hyperlipidemia, unspecified (4) Prediabetes: Status: Acute Categ
[2022-05-05 15:22] VITALS: BP 145/90; PULSE 98; RESP 16; TEMP 36.7; O2SAT 95
--- NOTE | 2022-05-05 17:46 | PC.NURSE ---
PT IS RESTING IN BED. AMBULATED TO THE BATHROOM AND IN THE ROOM THIS SHIFT. PT REFUSED AMBULATION A FEW TIMES B/C HE STATED HE WANTED TO BE LEFT ALONE SO HE COULD SLEEP. DRESSING TO THE ABDOMEN HAS BEEN CHANGED 2X THIS SHIFT DUE TO MODERATE AMOUNT OF SEROSANGUINEOUS FLUID. STAPLE FROM THE UMBILICAL FELL OUT THIS SHIFT. ABDOMEN SOFT/TENDER WITH HYPOACTIVE BOWEL SOUNDS. LUNG SOUNDS CLEAR. O2 SATURATION 90-95% ON 3 L NC. WILL CONTINUE TO MONITOR.
--- NOTE | 2022-05-05 18:44 | PC.NURSE ---
26 MG MORPHINE CLEARED FROM RIGGER SUPERVISOR PUMP.
[2022-05-05 18:52] LABS: POC Glucose,Bedside 80 (70-110)
[2022-05-05 20:00] VITALS: BP 140/90; PULSE 86; RESP 18; TEMP 36.8; O2SAT 95
[2022-05-05 21:27] LABS: POC Glucose,Bedside 71 (70-110)
--- NOTE | 2022-05-05 23:12 | PC.NURSE ---
dressing changed at this time. old dressing saturated in serosanguineous fluid. rosendo in place.
[2022-05-06] VITALS (24 sets, daily range): BP systolic 120–167; BP diastolic 55–94; PULSE 63–91; RESP 12–20; TEMP 36.5–37.9; O2SAT 2–100; BMI 28.0
--- NOTE | 2022-05-06 03:21 | XR_ITS ---
PROCEDURE INFORMATION: Exam: XR Abdomen Exam date and time: 05/06/2022 3:22 AM Age: 61 years old Clinical indication: Device placement; Gi device; Nasogastric tube; Additional info: Ngt placement TECHNIQUE: Imaging protocol: Radiologic exam of the abdomen. Views: Frontal supine view of the abdomen. 1 View. COMPARISON: CR XR ACUTE ABDOMEN SERIES 05/04/2022 8:14 AM FINDINGS: Tubes, catheters and devices: Enteric tube tip within the gastric body lumen. Heart/Mediastinum: Cardiomegaly. Pleural spaces: Right pleural effusion with associated atelectasis. Gastrointestinal tract: Normal. No bowel dilation. Organs: Cholecystectomy clips in the right upper abdomen. Bones/joints: Unremarkable. IMPRESSION: Enteric tube tip within the gastric body lumen.
--- NOTE | 2022-05-06 03:27 | PC.NURSE ---
ng tube noted to be pulled to about 35 cm. ng tube advanced to 54 cm at left nare.
--- NOTE | 2022-05-06 04:59 | PC.NURSE ---
spoke with hospitalist Devon ROBERTS. states OK to use NG tube based of KUB read
--- NOTE | 2022-05-06 05:28 | PC.NURSE ---
dressing changed again at 0345. moderate amount of serosanguineous fluid noted to old dressing. dressing is now c/d/i.
[2022-05-06 06:24] LABS: POC Glucose,Bedside 85 (70-110)
--- NOTE | 2022-05-06 06:26 | CT_ITS ---
FINAL REPORT TECHNIQUE: Axial CT images were performed from the lung bases through the pubic symphysis. Coronal reformats were submitted and reviewed. This study was performed with techniques to keep radiation doses as low as reasonably achievable (ALARA). Individualized dose reduction techniques using automated exposure control or adjustment of mA and/or kV according to the patient's size were employed. CLINICAL HISTORY: ABDOMINAL PAIN, WOUND DRAINAGE, (POSS DEHISCENCE) NG tube. COMPARISON: 05/03/2022 FINDINGS: Abdomen: There is bibasilar consolidation, right greater than left. There are small bilateral pleural effusions. An NG tube is seen terminating in the stomach. The liver parenchyma is homogeneous. The gallbladder is surgically absent. The spleen is not identified. There are several splenules in the left upper quadrant. The pancreas and adrenal glands are unremarkable. There is a large benign-appearing cyst arising from posterior right kidney measuring up to 5.3 x 4.8 cm. There is dense vascular calcification in the abdominal aorta and iliac vessels. There is a midline anterior abdominal wall mesh with overlying skin rosendo. There is a small amount of air in the midline subcutaneous soft tissues. No definite abscess is seen. There is no satinder wound dehiscence. There is a bowel anastomosis in the mid anterior abdomen that appears to represent a segment of small bowel measuring up to 4.6 cm. There is extensive descending and sigmoid colon diverticulosis. Pelvis: The appendix is unremarkable. There are no distal ureteral stones. The urinary bladder is unremarkable. IMPRESSION: No satinder wound dehiscence. No evidence of abscess. Bibasilar consolidation with small bilateral pleural effusions. Reviewed, Interpreted and Dictated by Eros Roman MD Transcribed by Norman Doan Authenticated and [facility]
--- NOTE | 2022-05-06 06:26 | PC.NURSE ---
11.9 mg morphine cleared from ATTENDING ANESTHESIOLOGIST pump at this time.
--- NOTE | 2022-05-06 06:54 | EXP.SURG.PN ---
Subjective Patient reports: no new complaints Narrative: Patient without any significant complaints. He does state that he did not sleep well due to some interruptions. He has no nausea. He does state he is passing gas. Exam Data for Last 24 hours Vital signs and Labs for Last 24 Hours: Temp Pulse Resp BP Pulse Ox 98.8 F 69 18 130/80 97 05/06/22 03:50 05/06/22 03:50 05/06/22 03:50 05/06/22 03:50 05/06/22 03:50 Laboratory Results - last 24 hr 05/05/22 06:00: Total Counted 100, Neutrophils % (Manual) 88 H, Lymphocytes % (Manual) 9 L, Monocytes % (Manual) 3, Platelet Estimate Normal, RBC Morphology Normal 05/05/22 11:40: POC Glucose 84 05/05/22 18:46: POC Glucose 80 05/05/22 21:06: POC Glucose 71 05/06/22 06:14: POC Glucose 85 I & O for Last 24 hours: Intake & Output 05/03/22 05/04/22 05/05/22 05/06/22 11:59 11:59 11:59 11:59 Intake Total 5521 / 5521 4383 / 4383 2113 / 2113 Output Total 1825 / 1825 3075 / 3075 1550 / 1550 Balance 3696 / 3696 1308 / 1308 563 / 563 Weight 187 lb 184 lb 7.994 oz 187 lb 6.287 oz 189 lb 9 oz *Routine Abdominal Exam Abdominal: Present soft Comments: Significant serous drainage on dressing Progress Note: A&P Assessment and plan (1) Bowel obstruction: Status: Deleted Assessment and plan: Concern for possible fascial dehiscence. Likely needs opening of wound in the operating room with possible fascial closure. I will obtain a CT scan. (2) HTN (hypertension): Status: Acute (3) HLD (hyperlipidemia): Status: Acute (4) Prediabetes: Status: Acute
[2022-05-06 09:26] LABS: Basophils % 0.2 % (0.1-2.0); Eosinophils # 0.6 K/mm3 (0.0-0.4); Eosinophils % 3.1 % (0.1-12.0); Hematocrit 31.6 % (42.0-52.0); Hemoglobin 10.1 g/dL (14.1-18.0); Lymphocytes # 1.7 K/mm3 (0.7-4.5); Lymphocytes % 9.6 % (10-50); Mean Corpuscular HGB Conc 32.1 g/dL (31.8-35.4); Mean Corpuscular Hemoglobin 30.1 pg (27.0-31.2); Mean Corpuscular Volume 93.8 fl (80-94); Mean Platelet Volume 9.5 fl (7.4-10.4); Monocytes # 0.7 K/mm3 (0.1-1.0); Monocytes % 3.8 % (1.7-9.3); Neutrophils # 14.8 K/mm3 (1.8-7.8); Neutrophils % 83.3 % (37.0-80.0); Platelet Count 307 K/mm3 (142-424); Red Blood Count 3.37 M/mm3 (4.60-6.20); Red Cell Distribution Width 15.6 % (11.5-17.5); White Blood Count 17.8 K/mm3 (4.8-10.8)
[2022-05-06 09:41] LABS: MANUAL DIFFERENTIAL MANUAL DIFFERENTIAL (MANUAL DIFF)
[2022-05-06 09:59] LABS: Anion Gap 12.7 mEq/L (5-15); Blood Urea Nitrogen 24 mg/dl (9-20); Carbon Dioxide 25 mmol/L (22.0-30.0); Chloride 105 mmol/L (98-107); Creatinine Clearance Estimated 93 mL/min (50-200); Estimated Glomerular Filt Rate 86 ml/min (>60); Potassium 3.7 mmoL/L (3.5-5.1); Sodium 139 mmol/L (136-145)
[2022-05-06 10:00] LABS: Alanine Aminotransferase 16 U/L (12-78); Albumin Level 2.4 g/dl (3.5-5.0); Albumin/Globulin Ratio 1.1 (1.1-1.8); Alkaline Phosphatase 81 U/L (38-126); Aspartate Amino Transferase 37 U/L (17-59); Bilirubin,Total 0.5 mg/dl (0.2-1.3); GFR (African American) 103 ML/MIN (>60); Globulin 2.1 g/dL (1.3-3.2); Glucose 75 mg/dl (74-100); Total Protein,Serum 4.5 g/dl (6.3-8.2)
[2022-05-06 11:17] LABS: POC Glucose,Bedside 77 (70-110)
--- NOTE | 2022-05-06 11:20 | P.PN_ITS ---
Subjective Narrative: No new complaints Exam Data for Last 24 hours Vital signs and Labs for Last 24 Hours: Temp Pulse Resp BP Pulse Ox 97.7 F 63 17 139/85 98 05/06/22 11:16 05/06/22 11:16 05/06/22 11:16 05/06/22 11:16 05/06/22 11:16 Laboratory Results - last 24 hr 05/05/22 11:40: POC Glucose 84 05/05/22 18:46: POC Glucose 80 05/05/22 21:06: POC Glucose 71 05/06/22 06:14: POC Glucose 85 05/06/22 09:13: WBC 17.8 H, RBC 3.37 L, Hgb 10.1 L, Hct 31.6 L, MCV 93.8, MCH 30.1, MCHC 32.1, RDW 15.6, Plt Count 307, MPV 9.5, Neut % (Auto) 83.3 H, Lymph % (Auto) 9.6 L, [place] % (Auto) 3.8, Eos % (Auto) 3.1, Baso % (Auto) 0.2, Neut # (Auto) 14.8 H, Lymph # (Auto) 1.7, [place] # (Auto) 0.7, Eos # (Auto) 0.6 H, Baso # (Auto) 0.0 05/06/22 09:13: Sodium 139, Potassium 3.7, Chloride 105, Carbon Dioxide 25, Anion Gap 12.7, BUN 24 H, Creatinine 0.90 D, Estimated Creat Clear 93, Estimated GFR 86, Est GFR ( Amer) 103 D, Glucose 75, Calcium 8.0 L, Total Bilirubin 0.5, AST 37 D, ALT 16, Alkaline Phosphatase 81, Total Protein 4.5 L, Albumin 2.4 L D, Globulin 2.1, Albumin/Globulin Ratio 1.1 05/06/22 11:09: POC Glucose 77 I & O for Last 24 hours: Intake & Output 05/03/22 05/04/22 05/05/22 05/06/22 11:59 11:59 11:59 11:59 Intake Total 5521 / 5521 4383 / 4383 2113 / 2113 Output Total 1825 / 1825 3075 / 3075 1800 / 1800 Balance 3696 / 3696 1308 / 1308 313 / 313 Weight 187 lb 184 lb 7.994 oz 187 lb 6.287 oz 189 lb 9 oz *Routine Abdominal Exam Comments: Continued serous drainage from incision. Appears as though several rosendo have been removed near the umbilical area where there is site of drainage. Progress Note: A&P Assessment and plan (1) Bowel obstruction: Status: Deleted Assessment and plan: CT scan shows no definite dehiscence. I did review the films. Given the serous drainage likely would benefit from wound being opened. Given the patient's poor tolerance of pain and due to the potential for fascial dehiscence not seen on CT scan I will plan to do this in the operating room. Plan for opening of the incision, inspection of the fascia and reclosure if indicated with wound washout. Likely would plan to leave the wound partially open with initiation of dressing changes to allow control of the serous drainage. (2) HTN (hypertension): Status: Acute (3) HLD (hyperlipidemia): Status: Acute (4) Prediabetes: Status: Acute
--- NOTE | 2022-05-06 11:27 | PC.NURSE ---
SURGICAL CONSENT REVIEWED AND SIGNED. PRE-OP CHECK LIST COMPLETED. PATIENT HAS CALLED AND INFORMED HIS BROTHER. DR CARABALLO TO OPEN WOUND (POSSIBLE WASH OUT-LAPAROTOMY)
[2022-05-06 11:35] LABS: Eosinophils % 3 % (0-3); Lymphocytes % 13 % (10-50); Monocytes % 3 % (2-9); Neutrophils % 81 % (42-76); Platelet Estimate Normal; RBC Morphology Normal; Total Cells Counted 100
--- NOTE | 2022-05-06 12:00 | EXP.ACUTE.PN ---
Subjective *Date: 05/06/22 *Time: 12:00 Interval history: Continues to complain of nausea this morning. Reports he is passing flatus. Denies any emesis. Tolerating ice chips and small amounts of clear liquids. NG still to low wall suction. Noted to have some drainage from his surgical incision of his abdomen. Pain stable on current regimen with LABORATORY ASST. Remains afebrile. Denies chest pain or shortness of Medical Exam Vital signs and Labs for Last 24 Hours: Vital Signs Temp Pulse Resp BP Pulse Ox 05/06/22 11:16 97.7 F 63 17 139/85 98 05/06/22 09:20 98.9 F 68 17 126/62 100 05/06/22 08:00 68 05/06/22 08:00 98.1 F 68 17 120/76 97 05/06/22 03:50 98.8 F 69 18 130/80 97 05/05/22 20:00 98.3 F 86 18 140/90 95 05/05/22 15:22 98.1 F 98 H 16 145/90 H 95 Intake and Output 05/05/22 05/06/22 05/06/22 23:59 07:59 15:59 Intake Total 1393 / 2985 720 / 720 0 / 720 Output Total 1050 / 2900 200 / 900 700 / 900 Balance 343 / 85 520 / -180 -700 / -180 Intake: Intake, Oral Amount 0 / 0 Intake, Total IV Amount 1393 / 2285 720 / 720 0.9 % Sodium Chloride 1,000 ml 1393 / 2285 @ 100 mls/hr IV .Q10H [facility] Rx#: [id number] Dextrose 5 % and 0.9 % NaCl 1, 720 / 720 000 ml @ 50 mls/hr IV .Q20H [facility] Rx#:[id number] Output: Output, Urine Amount 750 / 1750 200 / 900 700 / 900 Output, Gastric Drainage Amount 300 / 900 Nare 300 / 300 Other: Number of Unmeasured Voids 0 0 Weight 85.984 kg Patient Weight 05/06/22 23:59 Weight 85.984 kg Laboratory Results - last 24 hr 05/05/22 18:46: POC Glucose 80 05/05/22 21:06: POC Glucose 71 05/06/22 06:14: POC Glucose 85 05/06/22 09:13: WBC 17.8 H, RBC 3.37 L, Hgb 10.1 L, Hct 31.6 L, MCV 93.8, MCH 30.1, MCHC 32.1, RDW 15.6, Plt Count 307, MPV 9.5, Neut % (Auto) 83.3 H, Lymph % (Auto) 9.6 L, [place] % (Auto) 3.8, Eos % (Auto) 3.1, Baso % (Auto) 0.2, Neut # (Auto) 14.8 H, Lymph # (Auto) 1.7, [place] # (Auto) 0.7, Eos # (Auto) 0.6 H, Baso # (Auto) 0.0, Total Counted 100, Neutrophils % (Manual) 81 H, Lymphocytes % (Manual) 13, Monocytes % (Manual) 3, Eosinophils % (Manual) 3, Platelet Estimate Normal, RBC Morphology Normal 05/06/22 09:13: Sodium 139, Potassium 3.7, Chloride 105, Carbon Dioxide 25, Anion Gap 12.7, BUN 24 H, Creatinine 0.90 D, Estimated Creat Clear 93, Estimated GFR 86, Est GFR ( Amer) 103 D, Glucose 75, Calcium 8.0 L, Total Bilirubin 0.5, AST 37 D, ALT 16, Alkaline Phosphatase 81, Total Protein 4.5 L, Albumin 2.4 L D, Globulin 2.1, Albumin/Globulin Ratio 1.1 05/06/22 11:09: POC Glucose 77 I & O for Labs for Last 24 Hours: Intake & Output 05/03/22 05/04/22 05/05/22 05/06/22 23:59 23:59 23:59 23:59 Intake Total 3521 / 3521 4791 / 4791 2985 / 2985 720 / 720 Output Total 525 / 525 3025 / 3025 2700 / 2900 900 / 900 Balance 2996 / 2996 1766 / 1766 285 / 85 -180 / -180 Weight 85.502 kg 83.688 kg 85 kg 85.984 kg Constitutional: Present mild distress, average body habitus and chronically ill appearing Head: Present atraumatic and normocephalic ENT: Present normal exam and normal oropharynx Comment:: NG in place Neck: Present normal inspection Respiratory: Present normal respiratory effort; Absent rhonchi, wheezes or crackles Cardiac: Present Reg Rate and Rhythm GI: Present tenderness (diffuse.) and diminished bowel sounds Comments:: Postsurgical bandages clean dry and intact, (male): Present normal inspection Comment:: burks in place Extremities: Present normal inspection and full ROM; Absent edema Skin: Present intact; Absent erythema Neuro: Present Grossly Intact, alert, awake, oriented x 3 and moves all extremities Assessment and Plan *Assessment and plan (1) Bowel obstruction: Status: Deleted Category: Medical Code(s): K56.609 - Unspecified intestinal obstruction, unspecified as to partial versus complete obstruction (2) HTN (hypertension): Status:
--- NOTE | 2022-05-06 13:32 | EXP.ANES.CKL ---
[facility] Medical History (Updated 05/05/22 @ 07:51 by Robin Layton MD) Arthritis Asthma BPH (benign prostatic hyperplasia) COPD (chronic obstructive pulmonary disease) DM type 2 (diabetes mellitus, type 2) Ear ache GERD (gastroesophageal reflux disease) Herniated disc Surgical History (Updated 05/03/22 @ 14:50 by Preeti Jay, RN) H/O hernia repair H/O splenectomy History of cholecystectomy Family History (Updated 05/03/22 @ 14:50 by Preeti aJy, RN) Other Cancer Hyperlipidemia Hypertension Social History (Updated 05/03/22 @ 14:52 by Preeti Jay, DIONICIO) Smoking Status: Current every day smoker tobacco type: cigarettes packs per day: 2 alcohol intake: current substance use type: denies use current occupational status: disabled Travel in the last 8 weeks: None household members: significant other housing: house [facility] Anesthesia Checklist Patient Identification Patient Identification: Arm Band and Verbal (Name & ) Structural Data Admitted From: Inpatient Planned Operative Procedure/s: Abdominal washout Consent for Planned Operative Procedure(s) Verified: Yes Verified Documents: Surgical Consent NPO Status Verified Time NPO: 00:00 Airway Assessment C-Spine Mobility Assessed: Yes TMJ Mobility Assessed: Yes Dentition: Poor Dentition Neurological Assessment Level of Consciousness: Awake, Alert and Appropriate Anesthesia Plan Anesthesia Risk discussed: Yes ASA Class: III Anesthesia Type: General
--- NOTE | 2022-05-06 14:51 | P.PNANES_ITS ---
[facility] Anesthesia Record Part I Anesthesia Record I Intake, IV Amount: 800 Estimated blood loss (mL): 5 Urine output (mL): 0 Blood Pressure: 148/67 SaO2: 92 Pulse Rate: 80 Respiratory Rate: 14 Temperature: 98.5 F Patient is:: Drowsy Stable to PACU at:: 14:50
--- NOTE | 2022-05-06 14:51 | EXP.OP.NOTE ---
Date of procedure: 05/06/22 Pre-op Diagnosis:: Wound drainage Post-op Diagnosis:: Same Procedure performed:: Reopening of surgical wound, closure of fascia for dehiscence Surgeon:: Darvin Garcia MD FLOOR LAYER TILE:: Bradly Moon Anesthesia: KYLE Estimated blood loss (mL): 20 Clinical Note:: Patient is a 61-year-old male. He had previously undergone trauma laparotomy with splenectomy at an outside facility in [place] about 20 years ago. Patient had apparently developed significant incisional hernia and underwent incisional hernia repair in [place] in approximately 2004. He had a massive prosthetic mesh placed covering his entire upper abdomen. He did have a prior history of bowel obstruction which apparently was managed nonoperatively. He had presented to the emergency department overnight in the flight operations specialist hours of 05/03/2022 with severe abdominal pain rated as a 10 out of 10. He underwent CT scan which revealed postsurgical changes from previous ventral hernia repair with failure of the left-sided mesh. There is a loop of bowel between the mesh and the anterior abdominal wall with significant change in caliber, representing partial versus high-grade obstruction. . He was seen as a surgical consultation. Given the findings on CT scan and clinical examination with rebound and guarding as well as severe pain plan was made for laparotomy. He was taken emergently to the operating room on 05/03/2022 and patient was found to have massive prosthetic mesh covering essentially his entire upper abdominal wall except his pelvis. He almost had essentially a frozen abdomen with massive amount of intra-abdominal adhesions with numerous tight densely adherent loops of bowel with evidence of complete bowel obstruction secondary to adhesions in the mid small bowel. Immediately adjacent to the area of the dense adhesions bowel was densely adherent to the disrupted mesh and despite meticulous dissection there were unavoidable enterotomies. He underwent small bowel resection with extremely extensive lysis of adhesions with an operative duration of approximately 6 hours. Postoperatively, on postoperative day #2 patient was noted to have some drainage from the incision which was somewhat salmon-colored and serosanguineous. The following morning on 05/06/2022 his wound was inspected. There was concern for possible fascial dehiscence. He underwent CT scan which revealed findings of no satinder wound dehiscence. No evidence of abscess. Bibasilar consolidations with small bilateral pleural effusions. Given the patient's complaints of pain and due to the potential for fascial dehiscence to fight the CT scan findings plan was made for opening of the incision in a controlled fashion in the operating room with washout and possible fascial closure if indicated. Operative findings:: Patient has cloudy nonpurulent subcutaneous fluid. There was limited fascial dehiscence without evisceration in the lower incision. Operative note:: Patient was taken the operating room. He was placed in a supine position. General anesthesia was induced initially via LMA. Abdomen was prepped and draped in the standard surgical fashion. Skin rosendo were removed. Wound was bluntly opened. There was some cloudy serosanguineous fluid. This was nonpurulent. It was sent for cultures. Most of the incision and subcutaneous tissues were opened removing the rosendo. Inspection was carried out. There was partial fascial dehiscence in the lower aspect of the incision. There was no evidence of any evisceration. At this time General anesthesia was induced via endotracheal tube. Disrupted suture from the fascia was then removed. Upper incisional fascia was intact where the mesh was reapproximated. The fascial integrity was mediocre. The fascia was closed in a complex fashion using multiple interrupted #2 Novafil in a far?near?near?far fashion. Subcutaneous tissues were then irrigated with 3 L of salin
--- NOTE | 2022-05-06 15:14 | SUR.PHASEI ---
1511 BS obtained with results of Brenna Moon CRNA notified. No new orders given at this time
[2022-05-06 15:17] LABS: POC Glucose,Bedside 74 (70-110)
--- NOTE | 2022-05-06 15:30 | SUR.PHASEI ---
1525 called and gave detailed report to Gama Hamilton RN 1530 transported via bed to med/surg room. vital signs stable. denies pain at this time. left in stable condition with Gama Hamilton RN at bedside.
--- NOTE | 2022-05-06 15:31 | PC.NURSE ---
recieved report from Ary Mendieta RN/ PACU at 1530. s/p wound irrigation and incision packing.
[2022-05-06 16:55] LABS: POC Glucose,Bedside 77 (70-110)
--- NOTE | 2022-05-06 17:19 | PC.NURSE ---
PATIENT RESTING IN BED. POST-OP DAY 0 FOR ABDOMINAL SURGICAL WOUND/INCISION WASHING, PACKING. DRSG C/D/I. CURRENTLY ON 3LNC. 02 SATS 94%. RUNNING LOW GRADE TEMP. N/G TO CONTINUOUS LWS, SECRETIONS STRAW COLORED. ICE CHIPS ONLY. MORPHINE DATASTAGE ARCHITECT 13 MG TOTAL INFUSED THIS SHIFT. 200 ML GASTRIC SECRETIONS, STRAW COLOR EMPTIED. VOIDING PER URINAL, ADEQUATE AMTS.
[2022-05-06 21:03] LABS: POC Glucose,Bedside 76 (70-110)
--- NOTE | 2022-05-06 22:05 | PC.NURSE ---
He is A&Ox4. He reports abdominal pain and continues to use NURSING INFORMATICS SPECIALIST for pain. Offered acetaminophen but he refused. Is scheduled for ketorlac at 0030. He states he has ambulated 5-6 times today and did not want to tonight. He continues with NG in left nare @ 50 with CLWS. No drainage present. Weaned O2 to 2LPM n/c. He was 86% RA. He denies having a BM but states he is passing gas. Given new swabs for his mouth. He is NPO. DSG on abdomen C/D/I. Glucose 86 @ HS.
[2022-05-07] VITALS (8 sets, daily range): BP systolic 134–156; BP diastolic 65–86; PULSE 73–86; RESP 16–20; TEMP 36.1–37.7; O2SAT 90–97; BMI 27.9
--- NOTE | 2022-05-07 05:00 | PC.NURSE ---
Patient resting with eyes closed this shift (this nurse worked 1a-7a). O2 sats >92%, dressing c/d/i. NG tube Left nare at 50 on CLWS with minimal drainage.
[2022-05-07 06:53] LABS: Alanine Aminotransferase 17 U/L (12-78); Albumin Level 2.5 g/dl (3.5-5.0); Albumin/Globulin Ratio 1.1 (1.1-1.8); Alkaline Phosphatase 106 U/L (38-126); Anion Gap 13.2 mEq/L (5-15); Aspartate Amino Transferase 53 U/L (17-59); Bilirubin,Total 0.9 mg/dl (0.2-1.3); Blood Urea Nitrogen 19 mg/dl (9-20); Calcium 8.1 mg/dl (8.4-10.2); Carbon Dioxide 26 mmol/L (22.0-30.0); Chloride 104 mmol/L (98-107); Creatinine Clearance Estimated 93 mL/min (50-200); Estimated Glomerular Filt Rate 98 ml/min (>60); GFR (African American) 119 ML/MIN (>60); Globulin 2.3 g/dL (1.3-3.2); Glucose 78 mg/dl (74-100); Potassium 4.2 mmoL/L (3.5-5.1); Sodium 139 mmol/L (136-145); Total Protein,Serum 4.8 g/dl (6.3-8.2)
[2022-05-07 07:05] LABS: Basophils # 0.1 K/mm3 (0-0.2); Basophils % 0.3 % (0.1-2.0); Eosinophils # 0.3 K/mm3 (0.0-0.4); Eosinophils % 1.2 % (0.1-12.0); Hematocrit 32.5 % (42.0-52.0); Hemoglobin 10.5 g/dL (14.1-18.0); Lymphocytes # 1.7 K/mm3 (0.7-4.5); Mean Corpuscular HGB Conc 32.2 g/dL (31.8-35.4); Mean Corpuscular Hemoglobin 29.4 pg (27.0-31.2); Mean Corpuscular Volume 91.3 fl (80-94); Monocytes # 1.3 K/mm3 (0.1-1.0); Monocytes % 5.3 % (1.7-9.3); Neutrophils # 20.3 K/mm3 (1.8-7.8); Neutrophils % 86.2 % (37.0-80.0); Platelet Count 343 K/mm3 (142-424); Red Blood Count 3.56 M/mm3 (4.60-6.20); Red Cell Distribution Width 14.9 % (11.5-17.5); White Blood Count 23.6 K/mm3 (4.8-10.8)
--- NOTE | 2022-05-07 07:38 | EXP.SURG.PN ---
Subjective Patient reports: no new complaints Exam Data for Last 24 hours Vital signs and Labs for Last 24 Hours: Temp Pulse Resp BP Pulse Ox 97.8 F 86 16 134/65 97 05/07/22 03:55 05/07/22 03:55 05/07/22 03:55 05/07/22 03:55 05/07/22 03:55 Laboratory Results - last 24 hr 05/06/22 09:13: WBC 17.8 H, RBC 3.37 L, Hgb 10.1 L, Hct 31.6 L, MCV 93.8, MCH 30.1, MCHC 32.1, RDW 15.6, Plt Count 307, MPV 9.5, Neut % (Auto) 83.3 H, Lymph % (Auto) 9.6 L, [place] % (Auto) 3.8, Eos % (Auto) 3.1, Baso % (Auto) 0.2, Neut # (Auto) 14.8 H, Lymph # (Auto) 1.7, [place] # (Auto) 0.7, Eos # (Auto) 0.6 H, Baso # (Auto) 0.0, Total Counted 100, Neutrophils % (Manual) 81 H, Lymphocytes % (Manual) 13, Monocytes % (Manual) 3, Eosinophils % (Manual) 3, Platelet Estimate Normal, RBC Morphology Normal 05/06/22 09:13: Sodium 139, Potassium 3.7, Chloride 105, Carbon Dioxide 25, Anion Gap 12.7, BUN 24 H, Creatinine 0.90 D, Estimated Creat Clear 93, Estimated GFR 86, Est GFR ( Amer) 103 D, Glucose 75, Calcium 8.0 L, Total Bilirubin 0.5, AST 37 D, ALT 16, Alkaline Phosphatase 81, Total Protein 4.5 L, Albumin 2.4 L D, Globulin 2.1, Albumin/Globulin Ratio 1.1 05/06/22 11:09: POC Glucose 77 05/06/22 15:10: POC Glucose 74 05/06/22 16:43: POC Glucose 77 05/06/22 20:38: POC Glucose 76 05/07/22 06:10: Sodium 139, Potassium 4.2, Chloride 104, Carbon Dioxide 26, Anion Gap 13.2, BUN 19, Creatinine 0.80, Estimated Creat Clear 93, Estimated GFR 98, Est GFR ( Amer) 119, Glucose 78, Calcium 8.1 L, Total Bilirubin 0.9, AST 53 D, ALT 17, Alkaline Phosphatase 106, Total Protein 4.8 L, Albumin 2.5 L, Globulin 2.3, Albumin/Globulin Ratio 1.1 I & O for Last 24 hours: Intake & Output 05/04/22 05/05/22 05/06/22 05/07/22 11:59 11:59 11:59 11:59 Intake Total 5521 / 5521 4383 / 4383 2113 / 2113 1300 / 1300 Output Total 1825 / 1825 3075 / 3075 2250 / 2250 950 / 950 Balance 3696 / 3696 1308 / 1308 -137 / -137 350 / 350 Weight 184 lb 7.994 oz 187 lb 6.287 oz 189 lb 9 oz 188 lb 9.6 oz Microbiology Reports for the Last 24 Hours: Microbiology 05/06/22 13:30 Abdomen Gram Stain - Final Constitutional Constitutional: no acute distress *Routine Respiratory Exam Respiratory: Absent respiratory distress *Routine Cardiovascular Exam Cardiovascular: Absent tachycardia *Routine Abdominal Exam Abdominal: Present soft Comments: Dressing in place. Appropriate postoperative tenderness. Progress Note: A&P Assessment and plan (1) Small bowel obstruction: Status: Acute Assessment and plan: Overall, doing well POD4 status post exploratory laparotomy with partial small bowel resection. Nasogastric tube to drain bag Increase ambulation (2) Dehiscence of fascia: Status: Acute Assessment and plan: Overall, doing well POD1 status post reexploration for washout and fascial closure Continue dressing changes (3) Postoperative ileus: Status: Acute Assessment and plan: Improving... NG to drain bag
[2022-05-07 07:54] LABS: MANUAL DIFFERENTIAL MANUAL DIFFERENTIAL (MANUAL DIFF)
[2022-05-07 09:36] LABS: Eosinophils % 1 % (0-3); Lymphocytes % 8 % (10-50); Monocytes % 7 % (2-9); Neutrophils % 84 % (42-76); Total Cells Counted 100
[2022-05-07 09:37] LABS: Platelet Estimate Normal; RBC Morphology Normal
--- NOTE | 2022-05-07 10:52 | DIET.NUTRFU ---
Addendum entered by Nilsa Kruger RD, LD 05/07/22 15:08: NG is now out, no reports of nausea. Anticipate clear liquids later today, will wait for surgeon to order Original Note: Patient continues NPO x3 days now post SBO sx and continues to have NG drain in place. He did have some gas yesterday. He is receiving dextrose IVF for some calorie replacement. Labs today were WNL. Will continue to follow, once oral diet is appropriate and advance to regular consistency diabetic is recommended.
--- NOTE | 2022-05-07 12:06 | EXP.ACUTE.PN ---
Subjective *Date: 05/07/22 *Time: 16:24 Interval history: Marginal improvement in pain. Taken back to the OR yesterday for revision of surgical incision. NG to gravity this morning. Denies any nausea or vomiting. Passing flatus regularly per his report. Denies shortness of breath, chest pain, fever or chills. Medical Exam Vital signs and Labs for Last 24 Hours: Vital Signs Temp Pulse Pulse Resp BP BP Pulse Ox 05/07/22 08:00 98.7 F 78 18 138/82 95 05/07/22 03:55 97.8 F 86 16 134/65 97 05/06/22 23:41 98.5 F 91 H 18 152/69 H 97 05/06/22 22:00 98.7 F 89 17 154/84 H 96 05/06/22 22:04 86 L 05/06/22 20:00 2 L 05/06/22 21:00 98.8 F 85 18 152/86 H 96 05/06/22 20:00 98.5 F 83 17 148/74 H 95 05/06/22 19:55 98.6 F 80 18 148/74 H 94 L 05/06/22 18:56 98.5 F 87 16 158/74 H 05/06/22 18:00 100.1 F H 83 18 148/75 H 05/06/22 17:30 99.5 F 89 18 162/94 H 05/06/22 17:00 100.1 F H 82 18 151/82 H 94 L 05/06/22 16:36 99.9 F H 79 18 154/87 H 05/06/22 16:32 98.0 F 77 18 167/89 H 94 L 05/06/22 16:00 98.8 F 90 20 157/85 H 94 L 05/06/22 15:45 100.2 F H 82 18 161/88 H 91 L 05/06/22 15:30 100.0 F H 84 16 161/79 H 100 05/06/22 15:30 86 12 153/73 H 93 L 05/06/22 15:10 78 14 146/55 H 93 L 05/06/22 15:00 82 14 147/76 H 93 L 05/06/22 15:20 97.8 F 87 14 137/86 96 05/06/22 14:50 98.5 F 85 14 148/67 H 92 L 05/06/22 14:52 98.5 F 80 14 148/67 H Intake and Output 05/06/22 05/07/22 05/07/22 23:59 07:59 15:59 Intake Total 100 / 1620 400 / 400 Output Total 350 / 1250 600 / 820 220 / 820 Balance -250 / 370 -200 / -420 -220 / -420 Intake: Intake, Oral Amount 100 / 100 Intake, Total IV Amount 400 / 400 Ampicillin Sodium/Sulbactam 3 100 / 100 gm In 0.9 % Sodium Chloride 100 ml @ 200 mls/hr IV Q6H [facility] Rx# :[id number] Dextrose 5 % and 0.9 % NaCl 1, 300 / 300 000 ml @ 50 mls/hr IV .Q20H [facility] Rx#:[id number] Output: Output, Urine Amount 350 / 1250 600 / 820 220 / 820 Other: Number of Unmeasured Voids 0 Weight 85.548 kg Patient Weight 05/07/22 23:59 Weight 85.548 kg Laboratory Results - last 24 hr 05/06/22 15:10: POC Glucose 74 05/06/22 16:43: POC Glucose 77 05/06/22 20:38: POC Glucose 76 05/07/22 06:10: WBC 23.6 H* D, RBC 3.56 L, Hgb 10.5 L, Hct 32.5 L, MCV 91.3, MCH 29.4, MCHC 32.2, RDW 14.9, Plt Count 343, MPV 10.0, Neut % (Auto) 86.2 H, Lymph % (Auto) 7.0 L, [place] % (Auto) 5.3, Eos % (Auto) 1.2, Baso % (Auto) 0.3, Neut # (Auto) 20.3 H, Lymph # (Auto) 1.7, [place] # (Auto) 1.3 H, Eos # (Auto) 0.3, Baso # (Auto) 0.1, Total Counted 100, Neutrophils % (Manual) 84 H, Lymphocytes % (Manual) 8 L, Monocytes % (Manual) 7, Eosinophils % (Manual) 1, Platelet Estimate Normal, RBC Morphology Normal 05/07/22 06:10: Sodium 139, Potassium 4.2, Chloride 104, Carbon Dioxide 26, Anion Gap 13.2, BUN 19, Creatinine 0.80, Estimated Creat Clear 93, Estimated GFR 98, Est GFR ( Amer) 119, Glucose 78, Calcium 8.1 L, Total Bilirubin 0.9, AST 53 D, ALT 17, Alkaline Phosphatase 106, Total Protein 4.8 L, Albumin 2.5 L, Globulin 2.3, Albumin/Globulin Ratio 1.1 I & O for Labs for Last 24 Hours: Intake & Output 05/04/22 05/05/22 05/06/22 05/07/22 23:59 23:59 23:59 23:59 Intake Total 4791 / 4791 2985 / 2985 1620 / 1620 400 / 400 Output Total 3025 / 3025 2700 / 2900 1250 / 1250 820 / 820 Balance 1766 / 1766 285 / 85 370 / 370 -420 / -420 Weight 83.688 kg 85 kg 85.984 kg 85.548 kg Microbiology Reports for the Last 24 Hours: Microbiology 05/06/22 13:30 Abdomen Gram Stain - Final Constitutional: Present no acute distress, average body habitus and chronically ill appearing Head: Present atraumatic and normocephalic ENT: Present normal exam and normal oropharynx Comment:: NG in place Neck: Present normal inspection
--- NOTE | 2022-05-07 16:29 | PC.NURSE ---
28.4 mg of morphine delivered from fiberglass technician pump. fiberglass technician pump cleared at 1628.
--- NOTE | 2022-05-07 16:59 | PC.NURSE ---
NG tube out at 1338 while helping pt sit on the side of the bed to wash. No nausea or vomiting during shift. No residuals noted. Abdomen tender to touch but no distention noted. Patient able to tolerate ice chips and passing gas but no bowel movement. Dr. Layton notified and clear liquid diet with no carbonation ordered. VS stable, oxygen weaned from 2LNC to 1LNC. Patient ambulated inside room with no difficulty. [employer] pump in use.
--- NOTE | 2022-05-07 17:02 | PC.NURSE ---
Abdominal dressing changed at 1236.
--- NOTE | 2022-05-07 17:51 | EXP.ANES.II ---
[facility] Anesthesia Record Part II Anesthesia Record Part II Discharge Time: 15:30 Destination: Surgical Day Care (OP Surgery) PACU nurse assessment reviewed?: Yes Patient Condition:: Good Anesthesia Complications:: None Swallowing reflex intact?: Yes Cyanosis?: No Blood Pressure: 153/73 Pulse Rate: 86 Temperature: 97.0 F Mental Status: Alert & Oriented Pain level:: 0 Nausea and/or vomitting:: None Intake, IV Amount: 0
[2022-05-08] VITALS (7 sets, daily range): BP systolic 149–177; BP diastolic 79–98; PULSE 51–96; RESP 16–20; TEMP 36.8–37.1; O2SAT 86–95; BMI 28.9
--- NOTE | 2022-05-08 06:14 | PC.NURSE ---
Addendum entered by Tiana Motley RN 05/08/22 06:42: 20.5mg of Morphine cleared from X RAY TECHNOLOGIST pump this shift Original Note: Pt has been awake majority of this shift. Pt premedicated before dressing change on abdominal incision. Pt tolerated well. Dressing had large amounts of yellow/brown drainage w/ a very foul odor. Pt has tolerated clear liquid diet well. Pt says he is passing flatus. No other acute changes or complaints.
--- NOTE | 2022-05-08 07:35 | EXP.ACUTE.PN ---
Subjective *Date: 05/08/22 *Time: 11:45 Interval history: Tolerating clear liquids overnight. Still passing gas. Remains afebrile. No shortness of breath or chest pain. Complaining of mild abdominal pain. Patient denies nausea or vomiting this morning. No bowel movement as of yet. Reviewed morning labs, white cell count remains elevated. Ambulating to bathroom to void. Medical Exam Vital signs and Labs for Last 24 Hours: Vital Signs Temp Pulse Pulse Resp BP BP Pulse Ox 05/08/22 04:00 98.8 F 77 18 149/79 H 90 L 05/07/22 23:54 99.8 F H 81 16 156/84 H 91 L 05/07/22 20:00 91 L 05/07/22 19:40 98.6 F 73 16 141/78 H 90 L 05/07/22 16:00 98.1 F 80 20 139/82 93 L 05/07/22 12:00 98.4 F 81 16 146/86 H 93 L 05/07/22 08:00 98.7 F 78 18 138/82 95 05/07/22 17:52 97.0 F L 86 153/73 H Intake and Output 05/07/22 05/07/22 05/08/22 15:59 23:59 07:59 Intake Total 2026 / 2786 1167 / 1167 Output Total 520 / 1745 625 / 1745 Balance -520 / 1041 1401 / 1041 1167 / 1167 Intake: Intake, Oral Amount 720 / 1080 360 / 360 Intake, Other Amount / Intake, Total IV Amount 1306 / 1706 786 / 786 Dextrose 5 % and 0.9 % NaCl 1, 1206 / 1506 786 / 786 000 ml @ 50 mls/hr IV .Q20H [facility] Rx#:[id number] Piperacillin/Tazo 3.375 gm In 0 100 / 100 .9 % Sodium Chloride 50 ml @ 100 mls/hr IV Q6H [facility] Rx#: [id number] Output: Output, Urine Amount 520 / 1695 575 / 1695 Output, Gastric Drainage Amount 50 / 50 Left Nare 50 / 50 Other: Number of Unmeasured Voids 0 Weight 88.592 kg Patient Weight 05/08/22 23:59 Weight 88.592 kg Laboratory Results - last 24 hr 05/07/22 06:10: WBC 23.6 H* D, RBC 3.56 L, Hgb 10.5 L, Hct 32.5 L, MCV 91.3, MCH 29.4, MCHC 32.2, RDW 14.9, Plt Count 343, MPV 10.0, Neut % (Auto) 86.2 H, Lymph % (Auto) 7.0 L, [place] % (Auto) 5.3, Eos % (Auto) 1.2, Baso % (Auto) 0.3, Neut # (Auto) 20.3 H, Lymph # (Auto) 1.7, [place] # (Auto) 1.3 H, Eos # (Auto) 0.3, Baso # (Auto) 0.1, Total Counted 100, Neutrophils % (Manual) 84 H, Lymphocytes % (Manual) 8 L, Monocytes % (Manual) 7, Eosinophils % (Manual) 1, Platelet Estimate Normal, RBC Morphology Normal I & O for Labs for Last 24 Hours: Intake & Output 05/05/22 05/06/22 05/07/22 05/08/22 23:59 23:59 23:59 23:59 Intake Total 2985 / 2985 1620 / 1620 2426 / 2786 1167 / 1167 Output Total 2700 / 2900 1250 / 1250 1745 / 1745 Balance 285 / 85 370 / 370 681 / 1041 1167 / 1167 Weight 85 kg 85.984 kg 85.548 kg 88.592 kg Microbiology Reports for the Last 24 Hours: Microbiology 05/06/22 13:30 Abdomen Gram Stain - Final 05/06/22 13:30 Abdomen Wound Culture - Preliminary Gram Negative Rods Constitutional: Present no acute distress, average body habitus and chronically ill appearing Head: Present atraumatic and normocephalic ENT: Present normal exam and normal oropharynx Comment:: NG in place Neck: Present normal inspection Respiratory: Present normal respiratory effort; Absent rhonchi, wheezes or crackles Cardiac: Present Reg Rate and Rhythm GI: Present tenderness (diffuse, with interval improvement) and diminished bowel sounds Comments:: Postsurgical bandages clean dry and intact, (male): Present normal inspection Comment:: burks in place Extremities: Present normal inspection and full ROM; Absent edema Skin: Present intact; Absent erythema Neuro: Present Grossly Intact, alert, awake, oriented x 3 and moves all extremities Assessment and Plan *Assessment and plan (1) Bowel obstruction: Status: Deleted Category: Medical Code(s): K56.609 - Unspecified intestinal obstruction, unspecified as to partial versus complete obstruction (2) HTN (hypertension): Status: Acute Category: Medical Code(s): I10 - Essential (primary) hypertension (3) HLD (hyperlipidemia): Status:
[2022-05-08 07:55] LABS: Basophils # 0.1 K/mm3 (0-0.2); Basophils % 0.4 % (0.1-2.0); Eosinophils # 0.4 K/mm3 (0.0-0.4); Eosinophils % 1.6 % (0.1-12.0); Hematocrit 31.9 % (42.0-52.0); Hemoglobin 10.7 g/dL (14.1-18.0); Lymphocytes # 1.9 K/mm3 (0.7-4.5); Lymphocytes % 7.5 % (10-50); Mean Corpuscular HGB Conc 33.5 g/dL (31.8-35.4); Mean Corpuscular Hemoglobin 29.9 pg (27.0-31.2); Mean Corpuscular Volume 89.4 fl (80-94); Mean Platelet Volume 9.5 fl (7.4-10.4); Monocytes # 1.8 K/mm3 (0.1-1.0); Neutrophils # 21.2 K/mm3 (1.8-7.8); Neutrophils % 83.5 % (37.0-80.0); Platelet Count 399 K/mm3 (142-424); Red Blood Count 3.57 M/mm3 (4.60-6.20); Red Cell Distribution Width 14.8 % (11.5-17.5); White Blood Count 25.3 K/mm3 (4.8-10.8)
[2022-05-08 08:01] LABS: MANUAL DIFFERENTIAL MANUAL DIFFERENTIAL (MANUAL DIFF)
[2022-05-08 08:07] LABS: Alanine Aminotransferase 16 U/L (12-78); Albumin Level 2.6 g/dl (3.5-5.0); Albumin/Globulin Ratio 0.9 (1.1-1.8); Alkaline Phosphatase 120 U/L (38-126); Anion Gap 12.1 mEq/L (5-15); Aspartate Amino Transferase 49 U/L (17-59); Blood Urea Nitrogen 16 mg/dl (9-20); Calcium 8.1 mg/dl (8.4-10.2); Carbon Dioxide 27 mmol/L (22.0-30.0); Chloride 103 mmol/L (98-107); Creatinine Clearance Estimated 96 mL/min (50-200); Estimated Glomerular Filt Rate 86 ml/min (>60); GFR (African American) 103 ML/MIN (>60); Globulin 2.9 g/dL (1.3-3.2); Glucose 95 mg/dl (74-100); Potassium 3.1 mmoL/L (3.5-5.1); Sodium 139 mmol/L (136-145); Total Protein,Serum 5.5 g/dl (6.3-8.2)
[2022-05-08 08:50] LABS: Eosinophils % 2 % (0-3); Lymphocytes % 7 % (10-50); Monocytes % 10 % (2-9); Neutrophils % 81 % (42-76); Total Cells Counted 100
[2022-05-08 08:51] LABS: Platelet Estimate Slight Increase; RBC Morphology Normal
--- NOTE | 2022-05-08 09:55 | P.PN_ITS ---
Subjective Patient reports: no new complaints, tolerating liquids well and flatus Exam Data for Last 24 hours Vital signs and Labs for Last 24 Hours: Temp Pulse Resp BP Pulse Ox 98.6 F 86 20 160/80 H 91 L 05/08/22 08:00 05/08/22 08:00 05/08/22 08:00 05/08/22 08:00 05/08/22 08:00 Laboratory Results - last 24 hr 05/08/22 07:10: WBC 25.3 H*, RBC 3.57 L, Hgb 10.7 L, Hct 31.9 L, MCV 89.4, MCH 29.9, MCHC 33.5, RDW 14.8, Plt Count 399, MPV 9.5, Neut % (Auto) 83.5 H, Lymph % (Auto) 7.5 L, [place] % (Auto) 7.0, Eos % (Auto) 1.6, Baso % (Auto) 0.4, Neut # (Auto) 21.2 H, Lymph # (Auto) 1.9, [place] # (Auto) 1.8 H, Eos # (Auto) 0.4, Baso # (Auto) 0.1, Total Counted 100, Neutrophils % (Manual) 81 H, Lymphocytes % (Manual) 7 L, Monocytes % (Manual) 10 H, Eosinophils % (Manual) 2, Platelet Estimate Slight increase, RBC Morphology Normal 05/08/22 07:10: Sodium 139, Potassium 3.1 L D, Chloride 103, Carbon Dioxide 27, Anion Gap 12.1, BUN 16, Creatinine 0.90, Estimated Creat Clear 96, Estimated GFR 86, Est GFR ( Amer) 103, Glucose 95, Calcium 8.1 L, Total Bilirubin 1.0, AST 49, ALT 16, Alkaline Phosphatase 120, Total Protein 5.5 L, Albumin 2.6 L, Globulin 2.9, Albumin/Globulin Ratio 0.9 L I & O for Last 24 hours: Intake & Output 05/05/22 05/06/22 05/07/22 05/08/22 11:59 11:59 11:59 11:59 Intake Total 4383 / 4383 2113 / 2113 1300 / 1300 4153 / 4153 Output Total 3075 / 3075 2250 / 2250 1170 / 1370 1185 / 1185 Balance 1308 / 1308 -137 / -137 130 / -70 2968 / 2968 Weight 187 lb 6.287 oz 189 lb 9 oz 188 lb 9.6 oz 195 lb 5 oz Microbiology Reports for the Last 24 Hours: Microbiology 05/06/22 13:30 Abdomen Gram Stain - Final 05/06/22 13:30 Abdomen Wound Culture - Final Klebsiella oxytoca Constitutional Constitutional: no acute distress *Routine Respiratory Exam Respiratory: Present normal respiratory effort; Absent respiratory distress *Routine Cardiovascular Exam Cardiovascular: Absent tachycardia *Routine Abdominal Exam Abdominal: Present soft Comments: Dressings in place. No spreading cellulitis. Progress Note: A&P Assessment and plan (1) Small bowel obstruction: Status: Acute Assessment and plan: Overall, doing fairly well status post exploration with lysis of adhesions and partial small bowel resection. Continue to increase ambulation (2) Dehiscence of fascia: Status: Acute Assessment and plan: Overall, doing fairly well status post reexploration for closure (3) Postoperative ileus: Status: Acute Assessment and plan: Continuing to resolve. Full liquid diet ordered (4) Leukocytosis: Status: Acute Assessment and plan: Persistent leukocytosis without fever Continue close observation. Continue management as per primary service.
--- NOTE | 2022-05-08 16:00 | PC.NURSE ---
1600- increased o2 flow rate to 2lnc for drop in o2 sats.
--- NOTE | 2022-05-08 16:06 | PC.NURSE ---
nurse was notified of pt SPO2 level.
--- NOTE | 2022-05-08 18:00 | XR_ITS ---
PROCEDURE INFORMATION: Exam: XR Chest Exam date and time: 05/08/2022 6:42 PM Age: 61 years old Clinical indication: Shortness of breath TECHNIQUE: Imaging protocol: Radiologic exam of the chest. Views: 1 view. COMPARISON: CT ABDOMEN PELVIS WO CON 05/06/2022 7:28 AM FINDINGS: Lungs: Pulmonary vasculature grossly normal. Bilateral basilar alveolar opacities, right greater than left, consistent with atelectasis or pneumonia. These are not significantly changed from CT 05/06/2022. Pleural spaces: Small to moderate right and small left basilar pleural effusions likely not significantly changed. No pneumothorax. Heart/Mediastinum: Heart size normal. No tracheal/mediastinal shift. Bones/joints: No acute osseous abnormalities are identified. IMPRESSION: 1. Bilateral basilar airspace disease consistent with pneumonia or atelectasis, not significantly changed from CT 05/06/2022. 2. Small to moderate right and small left basilar pleural effusions suspected, without gross change.
--- NOTE | 2022-05-08 18:21 | PC.NURSE ---
21.5mg cleared from feather separator
[2022-05-08 19:44] LABS: POC Glucose,Bedside 114 (70-110)
--- NOTE | 2022-05-08 21:00 | PC.NURSE ---
2100 dressing changed to midline incisional area, noted moderate amount of purulent drainage on bed and towels, dressing was changed, packed wounds with dry kerlix and covered with 4x4 and abd and tape, noted blistering on both sides of incision from tape, covered areas with 4x4's prior to taping, pt tolerated well, human resources professional pump in use.
[2022-05-08 22:30] LABS: POC Glucose,Bedside 88 (70-110)
[2022-05-09] VITALS (8 sets, daily range): BP systolic 136–172; BP diastolic 76–94; PULSE 85–89; RESP 17–19; TEMP 36.7–37.5; O2SAT 90–92; BMI 28.8
--- NOTE | 2022-05-09 05:32 | PC.NURSE ---
26.9 mg cleared from wind farm designer
[2022-05-09 06:10] LABS: POC Glucose,Bedside 91 (70-110)
--- NOTE | 2022-05-09 07:50 | EXP.ACUTE.PN ---
Subjective *Date: 05/09/22 *Time: 10:06 Interval history: Patient complains of more bloating and abdominal discomfort over the past 24 hours. Still passing flatus, no bowel movement yet. Noting to have more pain with his abdominal incision. Concern for increased drainage of purulence from incision. White cell count elevated this morning on labs. No shortness of breath today. No chest pain. Chest x-ray reviewed from yesterday showing effusions bilaterally. Had good urine output with diuresis yesterday afternoon. Patient has significant concern about his incision. States he has had problems every time he had abdominal surgery. Medical Exam Vital signs and Labs for Last 24 Hours: Vital Signs Temp Pulse Resp BP Pulse Ox 05/09/22 04:00 98.3 F 89 19 147/76 H 90 L 05/08/22 20:00 95 05/08/22 23:06 98.4 F 84 16 91 L 05/08/22 19:36 98.3 F 78 18 154/93 H 95 05/08/22 16:00 98.6 F 96 H 18 158/92 H 86 L 05/08/22 12:00 98.4 F 51 L 20 177/98 H 90 L 05/08/22 08:00 92 L 05/08/22 08:00 98.6 F 86 20 160/80 H 91 L Intake and Output 05/08/22 05/08/22 05/09/22 15:59 23:59 07:59 Intake Total 1440 / 3673 1066 / 3673 Output Total 380 / 2004 1425 / 2005 500 / 500 Balance 1060 / 1668 -359 / 1668 -500 / -500 Intake: Intake, Oral Amount 1440 / 2280 480 / 2280 Intake, Total IV Amount 586 / 1372 Dextrose 5 % and 0.9 % NaCl 1, 586 / 1372 000 ml @ 50 mls/hr IV .Q20H [facility] Rx#:[id number] Output: Output, Urine Amount 380 / 2004 1425 / 2005 500 / 500 Other: Number of Unmeasured Voids 1 0 Weight 88.195 kg Patient Weight 05/09/22 23:59 Weight 88.195 kg Laboratory Results - last 24 hr 05/08/22 07:10: WBC 25.3 H*, RBC 3.57 L, Hgb 10.7 L, Hct 31.9 L, MCV 89.4, MCH 29.9, MCHC 33.5, RDW 14.8, Plt Count 399, MPV 9.5, Neut % (Auto) 83.5 H, Lymph % (Auto) 7.5 L, [place] % (Auto) 7.0, Eos % (Auto) 1.6, Baso % (Auto) 0.4, Neut # (Auto) 21.2 H, Lymph # (Auto) 1.9, [place] # (Auto) 1.8 H, Eos # (Auto) 0.4, Baso # (Auto) 0.1, Total Counted 100, Neutrophils % (Manual) 81 H, Lymphocytes % (Manual) 7 L, Monocytes % (Manual) 10 H, Eosinophils % (Manual) 2, Platelet Estimate Slight increase, RBC Morphology Normal 05/08/22 07:10: Sodium 139, Potassium 3.1 L D, Chloride 103, Carbon Dioxide 27, Anion Gap 12.1, BUN 16, Creatinine 0.90, Estimated Creat Clear 96, Estimated GFR 86, Est GFR ( Amer) 103, Glucose 95, Calcium 8.1 L, Total Bilirubin 1.0, AST 49, ALT 16, Alkaline Phosphatase 120, Total Protein 5.5 L, Albumin 2.6 L, Globulin 2.9, Albumin/Globulin Ratio 0.9 L 05/08/22 17:28: POC Glucose 114 H 05/08/22 20:58: POC Glucose 88 05/09/22 06:01: POC Glucose 91 I & O for Labs for Last 24 Hours: Intake & Output 05/06/22 05/07/22 05/08/22 05/09/22 23:59 23:59 23:59 23:59 Intake Total 1620 / 1620 2426 / 2786 3673 / 3673 Output Total 1250 / 1250 1745 / 1745 1805 / 2005 500 / 500 Balance 370 / 370 681 / 1041 1868 / 1668 -500 / -500 Weight 85.984 kg 85.548 kg 88.592 kg 88.195 kg Microbiology Reports for the Last 24 Hours: Microbiology 05/06/22 13:30 Abdomen Gram Stain - Final 05/06/22 13:30 Abdomen Wound Culture - Final Klebsiella oxytoca Constitutional: Present mild distress, average body habitus and chronically ill appearing Head: Present atraumatic and normocephalic ENT: Present normal exam and normal oropharynx Comment:: NG in place Neck: Present normal inspection Respiratory: Present normal respiratory effort; Absent rhonchi, wheezes or crackles Cardiac: Present Reg Rate and Rhythm GI: Present tenderness (diffuse) and normal bowel sounds Comments:: Purulent drainage soaking most distal bandages of incision. Mild erythema along edges of incision. (male): Present normal inspection Comment:: burks in place Extremities: Present normal inspection and full ROM; Absent edema Skin: Present intact; Absent erythema Neuro: Present
[2022-05-09 08:05] LABS: Basophils # 0.2 K/mm3 (0-0.2); Basophils % 0.9 % (0.1-2.0); Eosinophils # 0.7 K/mm3 (0.0-0.4); Eosinophils % 2.4 % (0.1-12.0); Hematocrit 34.2 % (42.0-52.0); Hemoglobin 11.3 g/dL (14.1-18.0); Lymphocytes % 7.2 % (10-50); Mean Corpuscular Volume 90.8 fl (80-94); Mean Platelet Volume 9.3 fl (7.4-10.4); Monocytes # 1.5 K/mm3 (0.1-1.0); Monocytes % 5.3 % (1.7-9.3); Neutrophils # 22.8 K/mm3 (1.8-7.8); Neutrophils % 84.1 % (37.0-80.0); Platelet Count 443 K/mm3 (142-424); Red Blood Count 3.77 M/mm3 (4.60-6.20); Red Cell Distribution Width 14.8 % (11.5-17.5); White Blood Count 27.1 K/mm3 (4.8-10.8)
[2022-05-09 08:11] LABS: MANUAL DIFFERENTIAL MANUAL DIFFERENTIAL (MANUAL DIFF)
[2022-05-09 08:18] LABS: Alanine Aminotransferase 21 U/L (12-78); Albumin Level 2.8 g/dl (3.5-5.0); Albumin/Globulin Ratio 0.9 (1.1-1.8); Alkaline Phosphatase 149 U/L (38-126); Aspartate Amino Transferase 45 U/L (17-59); Bilirubin,Total 1.2 mg/dl (0.2-1.3); Blood Urea Nitrogen 14 mg/dl (9-20); Calcium 8.4 mg/dl (8.4-10.2); Carbon Dioxide 29 mmol/L (22.0-30.0); Chloride 98 mmol/L (98-107); Creatinine Clearance Estimated 96 mL/min (50-200); Estimated Glomerular Filt Rate 86 ml/min (>60); GFR (African American) 103 ML/MIN (>60); Globulin 3.1 g/dL (1.3-3.2); Glucose 104 mg/dl (74-100); Sodium 137 mmol/L (136-145); Total Protein,Serum 5.9 g/dl (6.3-8.2)
--- NOTE | 2022-05-09 09:28 | EXP.PHA.CONS ---
Pharmacy Consult Date: 05/09/22 Time: 09:28 Referring provider: DR. MELO Reason for Consult:: VANCOMCYIN DOSING Allergies Allergy/AdvReac Type Severity Reaction Status Date / Time amitriptyline Allergy Agitated Verified 09/08/20 13:58 Sulfa (Sulfonamide Allergy Verified 09/08/20 13:58 Antibiotics) tramadol Allergy Verified 09/08/20 13:58 Home Medications Medication Instructions Recorded Confirmed Type finasteride 5 mg tablet 5 mg PO DAILY PROSTATE 09/08/20 05/03/22 History fluticasone propionate 50 2 spray intranasal DAILY Allergy 09/08/20 05/03/22 History mcg/actuation nasal symptoms spray,suspension lisinopril 20 mg tablet 20 mg PO DAILY Hypertension 09/08/20 05/03/22 History metformin 500 mg tablet 500 mg PO BID Diabetes 09/08/20 05/03/22 History nabumetone 750 mg tablet 750 mg PO DAILY Pain 09/08/20 05/03/22 History omeprazole 40 mg capsule,delayed 40 mg PO DAILY GERD 09/08/20 05/03/22 History release baclofen 10 mg tablet 10 - 20 mg PO TID MUSCLE SPASM 05/03/22 05/03/22 History rosuvastatin 20 mg tablet 20 mg PO HS Cholesterol 05/03/22 05/03/22 History New Prescriptions to Start Prescriptions: Height: 1.75 m Weight: 88.195 kg Laboratory Results:: Laboratory Results - last 24 hr 05/08/22 17:28: POC Glucose 114 H 05/08/22 20:58: POC Glucose 88 05/09/22 06:01: POC Glucose 91 05/09/22 07:47: WBC 27.1 H*, RBC 3.77 L, Hgb 11.3 L, Hct 34.2 L, MCV 90.8, MCH 30.0, MCHC 33.0, RDW 14.8, Plt Count 443 H, MPV 9.3, Neut % (Auto) 84.1 H, Lymph % (Auto) 7.2 L, [place] % (Auto) 5.3, Eos % (Auto) 2.4, Baso % (Auto) 0.9, Neut # (Auto) 22.8 H, Lymph # (Auto) 2.0, [place] # (Auto) 1.5 H, Eos # (Auto) 0.7 H, Baso # (Auto) 0.2 05/09/22 07:47: Sodium 137, Potassium 3.0 L, Chloride 98, Carbon Dioxide 29, Anion Gap 13.0, BUN 14, Creatinine 0.90, Estimated Creat Clear 96, Estimated GFR 86, Est GFR ( Amer) 103, Glucose 104 H, Calcium 8.4, Total Bilirubin 1.2, AST 45, ALT 21 D, Alkaline Phosphatase 149 H, Total Protein 5.9 L, Albumin 2.8 L, Globulin 3.1, Albumin/Globulin Ratio 0.9 L Medical History: Medical History (Updated 05/08/22 @ 09:57 by Robin Layton MD) Arthritis Asthma BPH (benign prostatic hyperplasia) COPD (chronic obstructive pulmonary disease) DM type 2 (diabetes mellitus, type 2) Ear ache GERD (gastroesophageal reflux disease) Herniated disc Assessment and Plan Assessment and plan all Dx Assessment and Plan for all problems:: Pharmacokinetic dosing service age: 61 yo Serum creatinine: 0.9 mg/dL Height: 68.9 Inches Weight (kg): 88 Assessment: IBW (kg): 70.47 Dosing wt(kg): 88 Estimated Creatinine clearance (ml/min): 84.8 CRCL method: Cockcroft and Gault using ibw(default). Drug selected: Vancomycin Loading dose (mg): 0 Vd (liters): 70.4 (factor used: 0.8 L/kg) [place] (hr-1): 0.075 Half life (hrs): 9.24 Recommended dose: 1500 mg Interval: 12 hrs Infusion time (hrs): 2.0 Predicted peak (mcg/mL): 33.3 Predicted trough (mcg/mL): 15.73 Total body weight is being used for vancomycin dosing. Recommendations: Give Vancomycin 1500 mg q 12 hrs with an expected Cpeak of 33.3 mcg/ml and an expected Ctrough of 15.73 mcg/ml ----Vanco only - ignore for aminoglycosides----- CLvanco= 5.28 L/hr AUC 0-24 /KARMA Data: KARMA 0.5 mcg/mL: AUC/KARMA: 1136.4 KARMA 1.0 mcg/mL: AUC/KARMA: 568.2 --------- KARMA 1.5 mcg/mL: AUC/KARAM: 378.8 KARMA 2.0 mcg/mL: AUC/KARMA: 284.1
--- NOTE | 2022-05-09 10:35 | EXP.SURG.PN ---
Subjective Patient reports: tolerating liquids well and flatus Narrative: Overall feels about the same but may be a little worse than yesterday . Exam Data for Last 24 hours Vital signs and Labs for Last 24 Hours: Temp Pulse Resp BP Pulse Ox 98.3 F 87 17 164/94 H 91 L 05/09/22 07:53 05/09/22 07:53 05/09/22 07:53 05/09/22 07:53 05/09/22 07:53 Laboratory Results - last 24 hr 05/08/22 17:28: POC Glucose 114 H 05/08/22 20:58: POC Glucose 88 05/09/22 06:01: POC Glucose 91 05/09/22 07:47: WBC 27.1 H*, RBC 3.77 L, Hgb 11.3 L, Hct 34.2 L, MCV 90.8, MCH 30.0, MCHC 33.0, RDW 14.8, Plt Count 443 H, MPV 9.3, Neut % (Auto) 84.1 H, Lymph % (Auto) 7.2 L, [place] % (Auto) 5.3, Eos % (Auto) 2.4, Baso % (Auto) 0.9, Neut # (Auto) 22.8 H, Lymph # (Auto) 2.0, [place] # (Auto) 1.5 H, Eos # (Auto) 0.7 H, Baso # (Auto) 0.2 05/09/22 07:47: Sodium 137, Potassium 3.0 L, Chloride 98, Carbon Dioxide 29, Anion Gap 13.0, BUN 14, Creatinine 0.90, Estimated Creat Clear 96, Estimated GFR 86, Est GFR ( Amer) 103, Glucose 104 H, Calcium 8.4, Total Bilirubin 1.2, AST 45, ALT 21 D, Alkaline Phosphatase 149 H, Total Protein 5.9 L, Albumin 2.8 L, Globulin 3.1, Albumin/Globulin Ratio 0.9 L I & O for Last 24 hours: Intake & Output 05/06/22 05/07/22 05/08/22 05/09/22 11:59 11:59 11:59 11:59 Intake Total 2113 / 2113 1300 / 1300 4153 / 4153 1965 / 1965 Output Total 2250 / 2250 1170 / 1370 1305 / 1305 2250 / 2250 Balance -137 / -137 130 / -70 2848 / 2848 -284 / -284 Weight 189 lb 9 oz 188 lb 9.6 oz 195 lb 5 oz 194 lb 7 oz Microbiology Reports for the Last 24 Hours: Microbiology 05/06/22 13:30 Abdomen Gram Stain - Final 05/06/22 13:30 Abdomen Wound Culture - Final Klebsiella oxytoca Constitutional Constitutional: no acute distress *Routine Respiratory Exam Respiratory: Absent respiratory distress *Routine Cardiovascular Exam Cardiovascular: Absent tachycardia *Routine Abdominal Exam Comments: Abdominal wound with packing in place. Purulent fluid draining from wound. Focal erythematous blush along margin. Progress Note: A&P Assessment and plan (1) Wound infection: Status: Acute Assessment and plan: 2 sutures removed and wound was packed open with dry gauze Antibiotics as per primary service (vancomycin added this morning) No need for emergent intervention; however, repeat washout may be necessary. He will be made NPO after midnight. (2) Bowel obstruction: Status: Deleted (3) Leukocytosis: Status: Acute Assessment and plan: Increasing leukocytosis likely secondary to localized wound infection. Wound opened and packed with dry gauze. (4) Cellulitis: Status: Acute
[2022-05-09 12:36] LABS: Lymphocytes % 15 % (10-50); Monocytes % 2 % (2-9); Neutrophils % 83 % (42-76); Platelet Estimate Normal; Total Cells Counted 100
[2022-05-09 12:37] LABS: Target Cells 2+
--- NOTE | 2022-05-09 18:10 | PC.NURSE ---
29.6 mg morphine cleared from financial consultant pump
[2022-05-09 21:28] LABS: POC Glucose,Bedside 101 (70-110)
--- NOTE | 2022-05-09 22:23 | PC.NURSE ---
dressing reinforced at start of shift as tape was loose top dressings loose, reinforced with 4x4's, abd pads, tape and anabella wrap to secure, pt stated it felt better. pt draining moderate to large amount purulent drainage from bottom packed area, pt tolerated well.
[2022-05-10] VITALS (20 sets, daily range): BP systolic 119–193; BP diastolic 64–111; PULSE 78–99; RESP 14–20; TEMP 36.4–37.3; O2SAT 88–99; BMI 29.5
--- NOTE | 2022-05-10 00:46 | PC.NURSE ---
Addendum entered by Coby Castellanos RN 05/10/22 00:48: VSS and pt in no acute distress, 02 sats 88-89% on room air, 90-91% on 1L pnc. Original Note: pt called out complaining of swelling in BLE, noted 1-2 + edema, knees and thighs appear to be swollen and pt states they are more swollen than normal, scrotal swelling also noted more than prior assessment, Devon Scott UX UI DESIGNER called and notified of pt complaints, and pt also complained of pain in LLE, Devon stated she will be up to assess pt later.
--- NOTE | 2022-05-10 01:56 | PC.NURSE ---
DOROTHY Osorio came to assess patient, note orders entered to give po lasix, verbal order to decrease fluids to 25ml/hr received repeated and verified.
--- NOTE | 2022-05-10 06:52 | EXP.SURG.PN ---
Subjective Narrative: Patient describes abdominal discomfort/pressure. No nausea. Passing gas. No bowel movement. Has had to have his dressing changed 5 times over the past 24 hours due to significant drainage. Exam Data for Last 24 hours Vital signs and Labs for Last 24 Hours: Temp Pulse Resp BP Pulse Ox 98.3 F 89 18 147/88 H 92 L 05/10/22 03:54 05/10/22 03:54 05/10/22 03:54 05/10/22 03:54 05/10/22 03:54 Laboratory Results - last 24 hr 05/09/22 07:47: WBC 27.1 H*, RBC 3.77 L, Hgb 11.3 L, Hct 34.2 L, MCV 90.8, MCH 30.0, MCHC 33.0, RDW 14.8, Plt Count 443 H, MPV 9.3, Neut % (Auto) 84.1 H, Lymph % (Auto) 7.2 L, [place] % (Auto) 5.3, Eos % (Auto) 2.4, Baso % (Auto) 0.9, Neut # (Auto) 22.8 H, Lymph # (Auto) 2.0, [place] # (Auto) 1.5 H, Eos # (Auto) 0.7 H, Baso # (Auto) 0.2, Total Counted 100, Neutrophils % (Manual) 83 H, Lymphocytes % (Manual) 15, Monocytes % (Manual) 2, Platelet Estimate Normal, Target Cells 2+ 05/09/22 07:47: Sodium 137, Potassium 3.0 L, Chloride 98, Carbon Dioxide 29, Anion Gap 13.0, BUN 14, Creatinine 0.90, Estimated Creat Clear 96, Estimated GFR 86, Est GFR ( Amer) 103, Glucose 104 H, Calcium 8.4, Total Bilirubin 1.2, AST 45, ALT 21 D, Alkaline Phosphatase 149 H, Total Protein 5.9 L, Albumin 2.8 L, Globulin 3.1, Albumin/Globulin Ratio 0.9 L 05/09/22 20:19: POC Glucose 101 I & O for Last 24 hours: Intake & Output 05/07/22 05/08/22 05/09/22 05/10/22 11:59 11:59 11:59 11:59 Intake Total 1300 / 1300 4153 / 4153 1965 / 1965 2730 / 2730 Output Total 1170 / 1370 1305 / 1305 2250 / 2250 1275 / 1275 Balance 130 / -70 2848 / 2848 -284 / -284 1455 / 1455 Weight 188 lb 9.6 oz 195 lb 5 oz 194 lb 7 oz 199 lb 8 oz *Routine Abdominal Exam Comments: Wound with thin purulent drainage. It does not appear to be consistent with succus. Possible minimal fascial disruption inferiorly. Progress Note: A&P Assessment and plan (1) Wound infection: Status: Acute Assessment and plan: I will plan to take the patient to the operating room for wound washout and placement of negative pressure wound therapy dressing to help control drainage. Could require opening and reclosure of fascia. Concern for possible bowel leakage although this seems less likely given the character of the drainage. I will discuss with hospitalist regarding potential initiation of transfer procedures to tertiary facility due to patient's complex care potentially requiring removal of massive prosthetic mesh and complex abdominal wound management such as abdominal VAC dressing and possible complex closure with separation of the abdominal components. (2) Bowel obstruction: Status: Deleted (3) Leukocytosis: Status: Acute (4) Cellulitis: Status: Acute
[2022-05-10 06:53] LABS: Basophils # 0.2 K/mm3 (0-0.2); Basophils % 0.8 % (0.1-2.0); Eosinophils # 0.5 K/mm3 (0.0-0.4); Eosinophils % 1.6 % (0.1-12.0); Hematocrit 33.4 % (42.0-52.0); Lymphocytes # 1.6 K/mm3 (0.7-4.5); Lymphocytes % 5.7 % (10-50); Mean Corpuscular HGB Conc 32.9 g/dL (31.8-35.4); Mean Corpuscular Hemoglobin 29.8 pg (27.0-31.2); Mean Corpuscular Volume 90.8 fl (80-94); Mean Platelet Volume 9.2 fl (7.4-10.4); Monocytes # 1.7 K/mm3 (0.1-1.0); Monocytes % 5.8 % (1.7-9.3); Neutrophils % 86.2 % (37.0-80.0); Platelet Count 579 K/mm3 (142-424); Red Blood Count 3.68 M/mm3 (4.60-6.20); Red Cell Distribution Width 14.9 % (11.5-17.5)
[2022-05-10 06:54] LABS: MANUAL DIFFERENTIAL MANUAL DIFFERENTIAL (MANUAL DIFF)
[2022-05-10 07:00] LABS: Alanine Aminotransferase 22 U/L (12-78); Alkaline Phosphatase 142 U/L (38-126); Aspartate Amino Transferase 46 U/L (17-59); Bilirubin,Total 1.1 mg/dl (0.2-1.3); Blood Urea Nitrogen 13 mg/dl (9-20); Calcium 8.5 mg/dl (8.4-10.2); Carbon Dioxide 31 mmol/L (22.0-30.0); Chloride 95 mmol/L (98-107); Creatinine Clearance Estimated 98 mL/min (50-200); Estimated Glomerular Filt Rate 86 ml/min (>60); GFR (African American) 103 ML/MIN (>60); Globulin 3.1 g/dL (1.3-3.2); Glucose 93 mg/dl (74-100); Sodium 136 mmol/L (136-145); Total Protein,Serum 6.1 g/dl (6.3-8.2)
--- NOTE | 2022-05-10 07:02 | PC.NURSE ---
pt did not rest well through the night, pt is alert and oriented x4, vss, morphine church official in use and changed this am total usage 25.2mg this shift, dressing was change with dr grullon at bedside, wound packed with dry kerlix and secured with 4x4 and abd and paper tape, pt tolerated well, pt remains npo for surgery this afternoon for washout, pt verb understanding, no other issues noted at this time
--- NOTE | 2022-05-10 07:35 | PC.NURSE ---
dr schneider called with potassium level 3.0, no new orders at this time.
[2022-05-10 07:37] LABS: Erythrocyte Sedimentation Rate 72 mm/hr (0-20)
[2022-05-10 07:56] LABS: Eosinophils % 2 % (0-3); Lymphocytes % 8 % (10-50); Monocytes % 5 % (2-9); Neutrophils % 84 % (42-76); Platelet Estimate Moderate Increase; Total Cells Counted 100
[2022-05-10 07:59] LABS: Target Cells 2+
--- NOTE | 2022-05-10 11:17 | EXP.PHA.PN ---
Subjective *Date: 05/10/22 *Time: 11:17 Medical Exam Vital signs and Labs for Last 24 Hours: Vital Signs Temp Pulse Resp BP Pulse Ox 05/10/22 08:00 98.3 F 95 H 14 154/78 H 91 L 05/10/22 03:54 98.3 F 89 18 147/88 H 92 L 05/10/22 00:00 98.1 F 92 H 16 119/73 90 L 05/09/22 20:00 86 91 L 05/09/22 20:34 99.5 F 05/09/22 19:38 98.0 F 86 18 136/87 91 L 05/09/22 15:08 98.3 F 85 17 158/80 H 92 L Intake and Output 05/09/22 05/10/22 05/10/22 23:59 07:59 15:59 Intake Total 1950 / 3150 792 / 792 Output Total 425 / 1850 525 / 1725 1200 / 1725 Balance 1525 / 1300 267 / -933 -1200 / -933 Intake: Intake, Oral Amount 480 / 1680 240 / 240 Intake, Total IV Amount 552 / 552 Dextrose 5 % and 0.9 % NaCl 1, 202 / 202 000 ml @ 50 mls/hr IV .Q20H [facility] Rx#:[id number] Piperacillin/Tazo 3.375 gm In 0 50 / 50 .9 % Sodium Chloride 50 ml @ 100 mls/hr IV Q6H [facility] Rx#: [id number] Vancomycin/Water For Inj (Peg) 300 / 300 1.5 gm In 300 ml @ 150 mls/hr IV Q12H [facility] Rx#:[id number] Infusion Intake 1470 / 1470 Dextrose 5 % and 0.9 % NaCl 1, 1470 / 1470 000 ml @ 50 mls/hr IV .Q20H [facility] Rx#:[id number] Output: Output, Urine Amount 425 / 1850 525 / 1725 1200 / 1725 Other: Number of Unmeasured Voids 0 0 Weight 90.492 kg Patient Weight 05/10/22 23:59 Weight 90.492 kg Laboratory Results - last 24 hr 05/09/22 07:47: Total Counted 100, Neutrophils % (Manual) 83 H, Lymphocytes % (Manual) 15, Monocytes % (Manual) 2, Platelet Estimate Normal, Target Cells 2+ 05/09/22 20:19: POC Glucose 101 05/10/22 06:34: WBC 29.0 H*, RBC 3.68 L, Hgb 11.0 L, Hct 33.4 L, MCV 90.8, MCH 29.8, MCHC 32.9, RDW 14.9, Plt Count 579 H D, MPV 9.2, Neut % (Auto) 86.2 H, Lymph % (Auto) 5.7 L, [place] % (Auto) 5.8, Eos % (Auto) 1.6, Baso % (Auto) 0.8, Neut # (Auto) 25.0 H, Lymph # (Auto) 1.6, [place] # (Auto) 1.7 H, Eos # (Auto) 0.5 H, Baso # (Auto) 0.2, Total Counted 100, Neutrophils % (Manual) 84 H, Lymphocytes % (Manual) 8 L, Atypical Lymphs % 1.0, Monocytes % (Manual) 5, Eosinophils % (Manual) 2, Platelet Estimate Moderate increase, Target Cells 2+ 05/10/22 06:34: Sodium 136, Potassium 3.0 L, Chloride 95 L, Carbon Dioxide 31 H, Anion Gap 13.0, BUN 13, Creatinine 0.90, Estimated Creat Clear 98, Estimated GFR 86, Est GFR ( Amer) 103, Glucose 93, Calcium 8.5, Total Bilirubin 1.1, AST 46, ALT 22, Alkaline Phosphatase 142 H, C-Reactive Protein 276.0 H, Total Protein 6.1 L, Albumin 3.0 L, Globulin 3.1, Albumin/Globulin Ratio 1.0 L 05/10/22 06:34: ESR 72 H I & O for Labs for Last 24 Hours: Intake & Output 05/07/22 05/08/22 05/09/22 05/10/22 23:59 23:59 23:59 23:59 Intake Total 2426 / 2786 3673 / 3673 2910 / 3150 792 / 792 Output Total 1745 / 1745 1805 / 2004 1575 / 1850 1725 / 1725 Balance 681 / 1041 1868 / 1668 1335 / 1300 -933 / -933 Weight 85.548 kg 88.592 kg 88.195 kg 90.492 kg The patient's infection will respond to the chosen ABx?: Yes (KLEBSIELLA OXYTOCA IN ABDOMINAL WOUND, ZOSYN COVERS) Is the patient receiving the right drug, dose, and route?: Yes Could a more targeted ABx be ordered?: No
[2022-05-10 12:45] LABS: POC Glucose,Bedside 88 (70-110)
--- NOTE | 2022-05-10 13:49 | EXP.ACUTE.PN ---
Subjective *Date: 05/10/22 *Time: 13:49 Interval history: Patient made n.p.o. overnight. Remains afebrile but continues to have significant bloating and drainage from his abdomen. Continues to complain of significant abdominal pain. Having hypersensitivity to minimal stimuli diffusely. Complains of swelling in his scrotum. No shortness of breath or oxygen requirement. No cough. No chest pain. Medical Exam Vital signs and Labs for Last 24 Hours: Vital Signs Temp Pulse Resp BP Pulse Ox 05/10/22 08:00 98.3 F 95 H 14 154/78 H 91 L 05/10/22 03:54 98.3 F 89 18 147/88 H 92 L 05/10/22 00:00 98.1 F 92 H 16 119/73 90 L 05/09/22 20:00 86 91 L 05/09/22 20:34 99.5 F 05/09/22 19:38 98.0 F 86 18 136/87 91 L 05/09/22 15:08 98.3 F 85 17 158/80 H 92 L Intake and Output 05/09/22 05/10/22 05/10/22 23:59 07:59 15:59 Intake Total 1950 / 3150 792 / 792 Output Total 425 / 1850 525 / 1725 1200 / 1725 Balance 1525 / 1300 267 / -933 -1200 / -933 Intake: Intake, Oral Amount 480 / 1680 240 / 240 Intake, Total IV Amount 552 / 552 Dextrose 5 % and 0.9 % NaCl 1, 202 / 202 000 ml @ 50 mls/hr IV .Q20H [facility] Rx#:[id number] Piperacillin/Tazo 3.375 gm In 0 50 / 50 .9 % Sodium Chloride 50 ml @ 100 mls/hr IV Q6H [facility] Rx#: [id number] Vancomycin/Water For Inj (Peg) 300 / 300 1.5 gm In 300 ml @ 150 mls/hr IV Q12H [facility] Rx#:[id number] Infusion Intake 1470 / 1470 Dextrose 5 % and 0.9 % NaCl 1, 1470 / 1470 000 ml @ 50 mls/hr IV .Q20H [facility] Rx#:[id number] Output: Output, Urine Amount 425 / 1850 525 / 1725 1200 / 1725 Other: Number of Unmeasured Voids 0 0 Weight 90.492 kg Patient Weight 05/10/22 23:59 Weight 90.492 kg Laboratory Results - last 24 hr 05/09/22 20:19: POC Glucose 101 05/10/22 06:34: WBC 29.0 H*, RBC 3.68 L, Hgb 11.0 L, Hct 33.4 L, MCV 90.8, MCH 29.8, MCHC 32.9, RDW 14.9, Plt Count 579 H D, MPV 9.2, Neut % (Auto) 86.2 H, Lymph % (Auto) 5.7 L, [place] % (Auto) 5.8, Eos % (Auto) 1.6, Baso % (Auto) 0.8, Neut # (Auto) 25.0 H, Lymph # (Auto) 1.6, [place] # (Auto) 1.7 H, Eos # (Auto) 0.5 H, Baso # (Auto) 0.2, Total Counted 100, Neutrophils % (Manual) 84 H, Lymphocytes % (Manual) 8 L, Atypical Lymphs % 1.0, Monocytes % (Manual) 5, Eosinophils % (Manual) 2, Platelet Estimate Moderate increase, Target Cells 2+ 05/10/22 06:34: Sodium 136, Potassium 3.0 L, Chloride 95 L, Carbon Dioxide 31 H, Anion Gap 13.0, BUN 13, Creatinine 0.90, Estimated Creat Clear 98, Estimated GFR 86, Est GFR ( Amer) 103, Glucose 93, Calcium 8.5, Total Bilirubin 1.1, AST 46, ALT 22, Alkaline Phosphatase 142 H, C-Reactive Protein 276.0 H, Total Protein 6.1 L, Albumin 3.0 L, Globulin 3.1, Albumin/Globulin Ratio 1.0 L 05/10/22 06:34: ESR 72 H 05/10/22 12:03: POC Glucose 88 I & O for Labs for Last 24 Hours: Intake & Output 05/07/22 05/08/22 05/09/22 05/10/22 23:59 23:59 23:59 23:59 Intake Total 2426 / 2786 3673 / 3673 2910 / 3150 792 / 792 Output Total 1745 / 1745 180 / 2004 1575 / 1850 1725 / 1725 Balance 681 / 1041 1868 / 1668 1335 / 1300 -933 / -933 Weight 85.548 kg 88.592 kg 88.195 kg 90.492 kg Constitutional: Present mild distress, average body habitus and chronically ill appearing Head: Present atraumatic and normocephalic ENT: Present normal exam and normal oropharynx Neck: Present normal inspection Respiratory: Present normal respiratory effort; Absent rhonchi, wheezes or crackles Cardiac: Present Reg Rate and Rhythm GI: Present tenderness (diffuse) and normal bowel sounds Comments:: Continues to saturate most distal portion of dressing, scant purulent serous drainage with mild erythema along edges of incision. Comment:: Edema of scrotum Extremities: Present normal inspection and full ROM; Absent edema Skin: Present intact; Absent erythema Neuro: Present Grossly Intact, alert, awake, oriented x 3 and moves all extremitie
--- NOTE | 2022-05-10 14:37 | PC.NURSE ---
off floor with surgery
--- NOTE | 2022-05-10 17:30 | EXP.ANES.I ---
[facility] Anesthesia Record Part I Anesthesia Record I Intake, IV Amount: 800 Estimated blood loss (mL): 10 Urine output (mL): 0 Blood Pressure: 152/92 SaO2: 92 Pulse Rate: 95 Respiratory Rate: 16 Temperature: 98 F Patient is:: Drowsy and Nasal O2 Stable to PACU at:: 17:27
--- NOTE | 2022-05-10 17:34 | EXP.OP.NOTE ---
Date of procedure: 05/10/22 Pre-op Diagnosis:: Wound problem Post-op Diagnosis:: Fascial dehiscence with necrosis Procedure performed:: Reopening of recent laparotomy, complex closure of the abdominal fascia, wound washout, placement of negative pressure wound therapy dressing. Surgeon:: Darvin Garcia MD LOPPER:: Bradly Moon Anesthesia: GETA Estimated blood loss (mL): 20 Clinical Note:: Patient is a 61-year-old male. He had previously undergone bilateral inguinal hernia repairs. He had reportedly undergone trauma laparotomy with splenectomy at facility in [place] about 20 years ago. Patient had developed significant incisional hernia and underwent incisional hernia repair in [place] in approximately 2004 at which time he appears to have had a massive prosthetic mesh placed covering virtually the entire upper abdomen. Interestingly, upon presentation to this facility he did have a subxiphoid recurrent hernia. However, patient had a prior history of bowel obstruction at outside facility which had been managed nonoperatively. 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 Work-up in the emergency department included CT scan which revealed postsurgical changes from previous ventral hernia repair with failure of the left-sided mesh.? There is a loop of bowel between the mesh and the anterior abdominal wall with significant change in caliber, representing partial versus high-grade obstruction. .? He was seen as a surgical consultation.? Given the findings on CT scan and clinical examination with rebound and guarding as well as severe pain plan was made for laparotomy.? He was taken emergently to the operating room on 05/03/2022 and patient was found to have massive prosthetic mesh covering essentially his entire upper abdominal wall except his pelvis.? He almost had essentially a frozen abdomen with massive amount of intra-abdominal adhesions with numerous tight densely adherent loops of bowel with evidence of complete bowel obstruction secondary to adhesions in the mid small bowel.? Immediately adjacent to the area of the dense adhesions bowel was densely adherent to the disrupted mesh and despite meticulous dissection there were unavoidable enterotomies.? He underwent small bowel resection with extremely extensive lysis of adhesions with an operative duration of approximately 6 hours.? On postoperative day #2 patient was noted to have some drainage from the incision which was somewhat salmon-colored and serosanguineous.? The following morning on 05/06/2022 his wound was inspected.? There was concern for possible fascial dehiscence.? He underwent CT scan which revealed findings of no satinder wound dehiscence.? No evidence of abscess.? Bibasilar consolidations with small bilateral pleural effusions. ? Given the patient's complaints of pain and due to the potential for fascial dehiscence to fight the CT scan findings plan was made for opening of the incision in a controlled fashion in the operating room with washout and possible fascial closure if indicated. At that time when he was taken to the operating room on 05/06/2022 he was found to have some cloudy nonpurulent subcutaneous fluid with a very limited fascial dehiscence without evisceration lower incision. He underwent reclosure of the fascia in a complex fashion and leaving the skin partially open for dressing changes. The following day the patient was doing relatively well and had his nasogastric tube removed. He was started on liquids and was passing gas. However, he had a progressive leukocytosis. There was concern due to some increasing purulence drainage from his wound and redness. Clinically this seemed to be consistent with wound failure with possible infection and less likely intra-abdominal bowel leakage. Patient was made n.p.o. after midnight. He had further progression of his leukocytosis on 05/10/2022. He
--- NOTE | 2022-05-10 18:15 | PC.NURSE ---
returned from surgery. pt is hypertensive. notified MD. new orders
--- NOTE | 2022-05-10 18:26 | SUR.PHASEI ---
1751 called and gave detailed report to Rodolfo Elkins RN [id number] transported pt to med/surg room. vital signs stable. resting comfortably. left in stable condition with Rodolfo Elkins RN at bedside.
--- NOTE | 2022-05-10 18:44 | PC.NURSE ---
Oc Moon CRNA notified of BP. okay to transfer pt to regular med/surg room.
--- NOTE | 2022-05-10 18:48 | PC.NURSE ---
pt voided in urinal. 400
[2022-05-10 22:43] LABS: Vancomycin,Trough 12.6 ug/mL (5.0-10.0)
--- NOTE | 2022-05-10 22:52 | PC.NURSE ---
wili with pharmacy nite watch called with vancomycin trough 12.6, no changes in dose at this time, stated to continue with scheduled dose, repeated and verified.
[2022-05-11 00:45] VITALS: BP 166/56; PULSE 91; RESP 20; O2SAT 89
--- NOTE | 2022-05-11 02:35 | PC.NURSE ---
noted wound vac was not functioning, battery was non functioning, could not locate wall adapter, wound dressing was place on wall suction at 120mm continuous suction until AC adapter was located, at this time container was full and pt remained on wall suction until container was found and switched back to portable wound vac, pt tolerated well.
--- NOTE | 2022-05-11 02:45 | PC.NURSE ---
[facility] called for update, no available beds at this time for transfer.
[2022-05-11 03:36] LABS: Vancomycin,Peak 21.7 ug/ml (11-39)
[2022-05-11 04:00] VITALS: BP 137/79; PULSE 89; RESP 18; TEMP 36.9; O2SAT 91
[2022-05-11 04:09] VITALS: BMI 29.3
--- NOTE | 2022-05-11 05:00 | PC.NURSE ---
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
[2022-05-11 06:40] LABS: Alanine Aminotransferase 16 U/L (12-78); Albumin Level 2.4 g/dl (3.5-5.0); Albumin/Globulin Ratio 0.9 (1.1-1.8); Alkaline Phosphatase 131 U/L (38-126); Anion Gap 14.4 mEq/L (5-15); Aspartate Amino Transferase 39 U/L (17-59); Bilirubin,Total 0.8 mg/dl (0.2-1.3); Blood Urea Nitrogen 13 mg/dl (9-20); Calcium 8.2 mg/dl (8.4-10.2); Carbon Dioxide 28 mmol/L (22.0-30.0); Chloride 98 mmol/L (98-107); Creatinine Clearance Estimated 97 mL/min (50-200); Estimated Glomerular Filt Rate 98 ml/min (>60); GFR (African American) 119 ML/MIN (>60); Globulin 2.8 g/dL (1.3-3.2); Glucose 120 mg/dl (74-100); Potassium 3.4 mmoL/L (3.5-5.1); Sodium 137 mmol/L (136-145); Total Protein,Serum 5.2 g/dl (6.3-8.2)
[2022-05-11 06:44] LABS: Basophils # 0.2 K/mm3 (0-0.2); Basophils % 0.4 % (0.1-2.0); Eosinophils % 0.1 % (0.1-12.0); Hematocrit 31.3 % (42.0-52.0); Hemoglobin 10.5 g/dL (14.1-18.0); Lymphocytes # 1.5 K/mm3 (0.7-4.5); Lymphocytes % 3.4 % (10-50); Mean Corpuscular HGB Conc 33.4 g/dL (31.8-35.4); Mean Corpuscular Volume 89.7 fl (80-94); Mean Platelet Volume 9.2 fl (7.4-10.4); Monocytes # 1.9 K/mm3 (0.1-1.0); Monocytes % 4.5 % (1.7-9.3); Neutrophils # 38.4 K/mm3 (1.8-7.8); Neutrophils % 91.5 % (37.0-80.0); Platelet Count 648 K/mm3 (142-424); Red Blood Count 3.49 M/mm3 (4.60-6.20); Red Cell Distribution Width 14.9 % (11.5-17.5)
--- NOTE | 2022-05-11 06:45 | PC.NURSE ---
0645 critical wbc called to Alisha ROBERTS, 42.0, no new orders at this time.
[2022-05-11 06:46] LABS: MANUAL DIFFERENTIAL MANUAL DIFFERENTIAL (MANUAL DIFF)
[2022-05-11 07:07] LABS: Lymphocytes % 3 % (10-50); Monocytes % 1 % (2-9); Neutrophils % 96 % (42-76); Platelet Estimate Slight Increase; RBC Morphology Normal; Total Cells Counted 100
[2022-05-11 07:42] VITALS: BP 136/77; PULSE 81; TEMP 37.2; O2SAT 93
--- NOTE | 2022-05-11 09:09 | EXP.SURG.PN ---
Subjective Patient reports: no new complaints Narrative: Patient complains of soreness around wound. No nausea. Taking clears. Passing flatus but no bowel movement. Exam Data for Last 24 hours Vital signs and Labs for Last 24 Hours: Temp Pulse Resp BP Pulse Ox 99.0 F 81 18 136/77 93 L 05/11/22 07:42 05/11/22 07:42 05/11/22 04:00 05/11/22 07:42 05/11/22 07:42 Laboratory Results - last 24 hr 05/10/22 12:03: POC Glucose 88 05/10/22 21:48: Vancomycin Trough 12.6 H 05/11/22 02:45: Vancomycin Peak 21.7 05/11/22 05:43: WBC 42.0 H* D, RBC 3.49 L, Hgb 10.5 L, Hct 31.3 L, MCV 89.7, MCH 30.0, MCHC 33.4, RDW 14.9, Plt Count 648 H, MPV 9.2, Neut % (Auto) 91.5 H, Lymph % (Auto) 3.4 L, [place] % (Auto) 4.5, Eos % (Auto) 0.1, Baso % (Auto) 0.4, Neut # (Auto) 38.4 H, Lymph # (Auto) 1.5, [place] # (Auto) 1.9 H, Eos # (Auto) 0.0, Baso # (Auto) 0.2, Total Counted 100, Neutrophils % (Manual) 96 H, Lymphocytes % (Manual) 3 L, Monocytes % (Manual) 1 L, Platelet Estimate Slight increase, RBC Morphology Normal 05/11/22 05:43: Sodium 137, Potassium 3.4 L, Chloride 98, Carbon Dioxide 28, Anion Gap 14.4, BUN 13, Creatinine 0.80, Estimated Creat Clear 97, Estimated GFR 98, Est GFR ( Amer) 119, Glucose 120 H D, Calcium 8.2 L, Total Bilirubin 0.8, AST 39, ALT 16 D, Alkaline Phosphatase 131 H, Total Protein 5.2 L, Albumin 2.4 L D, Globulin 2.8, Albumin/Globulin Ratio 0.9 L I & O for Last 24 hours: Intake & Output 05/08/22 05/09/22 05/10/22 05/11/22 11:59 11:59 11:59 11:59 Intake Total 4153 / 4153 1966 / 1965 3282 / 3282 2205 / 2205 Output Total 1305 / 1305 2250 / 2250 2475 / 2475 2475 / 2475 Balance 2848 / 2848 -284 / -284 807 / 807 -270 / -270 Weight 195 lb 5 oz 194 lb 7 oz 199 lb 8 oz 198 lb 3 oz *Routine Abdominal Exam Comments: VAC dressing in place with good seal. Redness around wound. Output changed character and somewhat concerning for possible enteric source. Progress Note: A&P Assessment and plan (1) Bowel obstruction: Status: Deleted Assessment and plan: Patient is post-op day #. Feels okay other than soreness around wound. Markedly elevated WBC (42K). VAC wound output character concerning for possible enteric source but no evidence of diffuse peritonitis. Due to potential enteric fistula development, complex abdominal wall issues, potential need for removal of massive prosthetic mesh, potential need for management of open abdomen, etc. arrangements have been made for transfer to tertiary facility. Has been accepted in transfer to [facility], however, still awaiting bed availability. (2) Cellulitis: Status: Acute (3) HTN (hypertension): Status: Acute (4) HLD (hyperlipidemia): Status: Acute (5) Prediabetes: Status: Acute (6) Leukocytosis: Status: Acute
--- NOTE | 2022-05-11 09:32 | P.PNANES_ITS ---
[facility] Anesthesia Record Part II Anesthesia Record Part II Discharge Time: 17:57 Destination: Surgical Day Care (OP Surgery) PACU nurse assessment reviewed?: Yes Patient Condition:: Good Anesthesia Complications:: None Swallowing reflex intact?: Yes Cyanosis?: No Blood Pressure: 190/90 Pulse Rate: 96 Temperature: 97.6 F Mental Status: Alert & Oriented Pain level:: 0 Nausea and/or vomitting:: None Intake, IV Amount: 0
[2022-05-11 09:33] VITALS: BP 190/90; PULSE 96; TEMP 36.4
--- NOTE | 2022-05-11 10:24 | PC.NURSE ---
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
[2022-05-11 11:23] VITALS: BP 142/82; PULSE 76; RESP 17; TEMP 37.2; O2SAT 90
--- NOTE | 2022-05-11 11:39 | PC.NURSE ---
tried calling report to with no anser, will cont to call.
--- NOTE | 2022-05-11 13:15 | PC.NURSE ---
[facility]PATCH HAS BEEN NOTIFIED, WAITING ON AMBULANCE FOR TRANSFER
--- NOTE | 2022-05-11 14:26 | PC.NURSE ---
SPOKE WITH [facility], WAITING ON PT TRANSIT CLERK
[2022-05-11 21:38] LABS: POC Glucose,Bedside 130 (70-110)
[2022-05-11 21:38] LABS: POC Glucose,Bedside 131 (70-110)
--- NOTE | 2022-06-02 17:45 | EXP.DC.SUM ---
General Admission date:: 05/03/22 Discharge date: 05/11/22 HPI HPI HPI: Patient is a 61-year-old male from [facility] who has a prior history of trauma laparotomy with splenectomy in approximately 2001. He had ventral hernia repair with mesh in approximately 2003 in [facility]. He has had a prior history of bowel obstruction. He presented to the emergency department in the negative retoucher hours with acute left lower quadrant abdominal pain. He has had some pain off and on intermittently for several weeks but became quite severe and unrelenting overnight. He describes the pain as a 10 out of 10. Evaluation in the emergency department included CT scan which revealed postsurgical changes from previous ventral hernia repair with failure of the left-sided mesh. There is loop of bowel between the mesh and the anterior abdominal wall with significant change in caliber, representing partial versus high-grade obstruction. Surgical consultation was obtained. Hospital Course Hospital Course Hospital Course: Patient is a 61-year-old male with past medical history of hypertension, hyperlipidemia, and prediabetes who was admitted for bowel obstruction with implanted mesh complication.? Problems addressed as follows: Bowel obstruction Cellulitis of surgical wound -Summary of abdominal presentation and surgical interventions compiled from surgical documentation as follows: -- He had previously undergone bilateral inguinal hernia repairs.? He had reportedly undergone trauma laparotomy with splenectomy at facility in [place] about 20 years ago.? Patient had developed significant incisional hernia and underwent incisional hernia repair in [place] in approximately 2004 at which time he appears to have had a massive prosthetic mesh placed covering virtually the entire upper abdomen.? Interestingly, upon presentation to this facility he did have a subxiphoid recurrent hernia.? However, patient had a prior history of bowel obstruction at outside facility which had been managed nonoperatively.? He had presented to the emergency department in the negative retoucher hours of 05/03/2022 with severe abdominal pain rated as a 10 out of 10.? Work-up in the emergency department included CT scan which revealed postsurgical changes from previous ventral hernia repair with failure of the left-sided mesh.? There is a loop of bowel between the mesh and the anterior abdominal wall with significant change in caliber, representing partial versus high-grade obstruction. .? He was seen as a surgical consultation.? Given the findings on CT scan and clinical examination with rebound and guarding as well as severe pain plan was made for laparotomy.? He was taken emergently to the operating room on 05/03/2022 and patient was found to have massive prosthetic mesh covering essentially his entire upper abdominal wall except his pelvis.? He almost had essentially a frozen abdomen with massive amount of intra-abdominal adhesions with numerous tight densely adherent loops of bowel with evidence of complete bowel obstruction secondary to adhesions in the mid small bowel.? Immediately adjacent to the area of the dense adhesions bowel was densely adherent to the disrupted mesh and despite meticulous dissection there were unavoidable enterotomies.? He underwent small bowel resection with extremely extensive lysis of adhesions with an operative duration of approximately 6 hours.? On postoperative day #2 patient was noted to have some drainage from the incision which was somewhat salmon-colored and serosanguineous.? The following morning on 05/06/2022 his wound was inspected.? There was concern for possible fascial dehiscence.? He underwent CT scan which revealed findings of no satinder wound dehiscence.? No evidence of abscess.? Bibasilar consolidations with small bilateral pleural effusions. ? Given the patient's complaints of pain and due to the potential for fascial dehiscence to fight the CT scan fin
== END 2022-05-11 15:15 | disposition short-term general hospital (02) | DRG 330 ==
LOC: ER 07:34 → 2ND 08:56
PROVIDERS: Emergency Medicine; Internal Medicine Adolescent Medicine; Admitting Provider Surgery; Emergency Provider Emergency Medicine; PCP Family Medicine; Visit Provider Student in an Organized Health Care Education/Training Program
PROC: 0DB80ZZ Excision of Small Intestine, Open Approach (ICD-10-PCS; CPT 49000; principal; 2022-05-03 08:00)
PROC: 0JQ80ZZ Repair Abdomen Subcutaneous Tissue and Fascia, Open Approach (ICD-10-PCS; principal; 2022-05-06 12:00)
PROC: 0JJT0ZZ Inspection of Trunk Subcutaneous Tissue and Fascia, Open Approach (ICD-10-PCS; principal; 2022-05-10 12:15)
DX: K56.52 Intestinal adhesions [bands] with complete obstruction (principal); I96 Gangrene, not elsewhere classified; T81.30XA Disruption of wound, unspecified, initial encounter; K91.89 Other postprocedural complications and disorders of digestive system; I10 Essential (primary) hypertension; F17.210 Nicotine dependence, cigarettes, uncomplicated; E78.5 Hyperlipidemia, unspecified; F17.220 Nicotine dependence, chewing tobacco, uncomplicated; Y83.9 Surgical procedure, unspecified as the cause of abnormal reaction of the patient, or of later complication, without mention of misadventure at the time of the procedure; K56.7 Ileus, unspecified; M19.90 Unspecified osteoarthritis, unspecified site
CPT/HCPCS: 44120; 44005; 12031; 49002; 36415; 71045; 74018; 74021; 74176; 74177; 80053; 80202; 81001; 82962; 83605; 83735; 85007; 85025; 85651; 86140; 87070; 87075; 87077; 87186; 87205; 88307; 93005; 94760; 99285; C9803; J2405; J2543; J3475; Q9967; U0003; U0005

== ENCOUNTER 2024-07-16 13:23 | Emergency (ER) | payer MEDICARE, SELFPAY ==
[2024-07-16] VITALS (9 sets, daily range): BP systolic 133–165; BP diastolic 75–114; PULSE 76–92; RESP 12–20; TEMP 36.5; O2SAT 95–98; BMI 25.0
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
--- NOTE | 2024-07-16 13:42 | ECG_ITS ---
APPROVED REPORT Exam: Resting ECG HR:79 bpm ECG Measurements Heart Rate 79 AXES OK 153 P 74 QRSd 88 QRS 62 QT 367 T 55 QTc 401 Conclusion SINUS RHYTHM NORMAL ECG Electronically signed by : TONIE MESSER, 07/16/2024 17:07:53
[2024-07-16 14:22] LABS: Carboxyhemoglobin 6.3 (0.0-5.0)
[2024-07-16] MEDS: MORPHINE 4MG/ML SYRINGE 4 MG IV (14:23)
[2024-07-16] MEDS: ONDANSETRON 4MG/2ML VIAL 4 MG IV (14:23)
[2024-07-16] MEDS: LACTATED RINGERS 1000ML 1,000 ML 999 ML IV (14:23)
[2024-07-16 14:26] LABS: ABG Base Excess 0.6 mmol/L (-2.4-2.3); ABG HCO3 25.3 mmhg (22.0-26.0); ABG Oxygen Saturation 93 % (90-100); ABG PCO2 40.8 mmhg (35.0-45.0); ABG PH 7.41 mmol/L (7.35-7.45); ABG PO2 59.2 mmhg (80-100); ABG TCO2 26.5 mmhg (23-27); Allen's Test Acceptable; Oxygen ROOM AIR %; Source Left Radial
[2024-07-16 14:30] LABS: Basophils # 0.1 K/mm3 (0-0.2); Eosinophils # 0.4 K/mm3 (0.0-0.4); Hematocrit 46.2 % (42.0-52.0); Hemoglobin 15.4 g/dL (14.1-18.0); Lymphocytes # 1.9 K/mm3 (0.7-4.5); Lymphocytes % 15.3 % (10-50); Mean Corpuscular HGB Conc 33.3 g/dL (31.8-35.4); Mean Corpuscular Volume 90.1 fl (80-94); Mean Platelet Volume 10.6 fl (7.4-10.4); Monocytes # 1.2 K/mm3 (0.1-1.0); Monocytes % 9.3 % (1.7-9.3); Neutrophils # 8.9 K/mm3 (1.8-7.8); Neutrophils % 71.2 % (37.0-80.0); Platelet Count 404 K/mm3 (142-424); Red Blood Count 5.13 M/mm3 (4.60-6.20); Red Cell Distribution Width 15.2 % (11.5-17.5); White Blood Count 12.4 K/mm3 (4.8-10.8)
[2024-07-16 14:45] LABS: Alanine Aminotransferase 23 U/L (12-78); Albumin Level 4.2 g/dl (3.5-5.0); Albumin/Globulin Ratio 1.4 (1.1-1.8); Alkaline Phosphatase 91 U/L (38-126); Anion Gap 10.2 mEq/L (5-15); Aspartate Amino Transferase 32 U/L (17-59); Bilirubin,Total 0.2 mg/dl (0.2-1.3); Blood Urea Nitrogen 19 mg/dl (9-20); Calcium 9.5 mg/dl (8.4-10.2); Carbon Dioxide 30 mmol/L (22.0-30.0); Chloride 104 mmol/L (98-107); Creatinine Clearance Estimated 72 mL/min (50-200); Estimated Glomerular Filt Rate 67 ml/min (>60); GFR (African American) 82 ML/MIN (>60); Glucose 96 mg/dl (74-100); Potassium 4.2 mmoL/L (3.5-5.1); Sodium 140 mmol/L (136-145); Total Protein,Serum 7.2 g/dl (6.3-8.2)
--- NOTE | 2024-07-16 14:50 | PC.NURSE ---
calling care management for pre auth on transfer for pt
[2024-07-16 14:57] LABS: Troponin I < 0.01 ng/ml (0.00-0.034)
[2024-07-16 15:15] LABS: Lactic Acid 1.9 mmol/L (0.7-2.1)
--- NOTE | 2024-07-16 15:15 | PC.NURSE ---
juan mehta took report for pt being transferred
[2024-07-16 16:12] LABS: Hepatitis C Ab Qual. W/ RFX NEGATIVE (Negative)
[2024-07-16 19:53] LABS: HIV Combo NEGATIVE (Negative)
== END 2024-07-16 16:01 | disposition short-term general hospital (02) ==
PROVIDERS: Emergency Provider Emergency Medicine; PCP Family Medicine
DX: J70.5 Respiratory conditions due to smoke inhalation (principal); T14.90XA Injury, unspecified, initial encounter; I10 Essential (primary) hypertension; E78.5 Hyperlipidemia, unspecified; J44.9 Chronic obstructive pulmonary disease, unspecified; E11.9 Type 2 diabetes mellitus without complications; K21.9 Gastro-esophageal reflux disease without esophagitis; R06.02 Shortness of breath; X08.8XXA Exposure to other specified smoke, fire and flames, initial encounter; Y93.89 Activity, other specified; Y92.008 Other place in unspecified non-institutional (private) residence as the place of occurrence of the external cause
CPT/HCPCS: 71045; 80053; 82375; 82803; 83605; 84484; 85025; 86803; 87389; 93005; 96361; 96374; 96375; 99291; J2270; J2405; J7120